=== PATIENT | female | born 1950 | race Caucasian/White ===

== ENCOUNTER → 2016-08-13 | Outpatient (CLI) | payer MEDICARE ==
[2016-08-13 16:12] LABS: Basophils % (A) 0 %; CH 28.5; CHCM 34.7; Eosinophils # (A) 0.1 k/uL (0-0.7); Eosinophils % (A) 1 %; HCT 35.3 % (34.0-46.0); HDW 2.52; HGB 12.5 gm/dL (11.4-16.0); Luc # (Auto) 0.14; Luc % (Auto) 2; Lymphocytes # (A) 1.6 k/uL (1.0-4.8); Lymphocytes % (A) 19 %; MCH 29.2 pg (25.0-35.0); MCHC 35.5 g/dL (31.0-37.0); MCV 82.2 fL (80.0-100.0); Mean Platelet Volume 5.9; Monocytes # (A) 0.4 k/uL (0-1.0); Monocytes % (A) 5 %; Neutrophils % (A) 73 %; RBC 4.29 m/uL (3.80-5.40); RDW 14.2 % (11.5-15.5); WBC 8.2 k/uL (3.8-10.6); WBC (Perox) 8.75
[2016-08-13 16:20] LABS: ALT 37 U/L (9-52); AST 23 U/L (14-36); Blood Urea Nitrogen 19 mg/dL (7-17); C Reactive Protein <5.0 mg/L (<10.0); Non-African American GFR(MDRD) >60 (>60 ml/min/1.73 sqM)
[2016-08-13 16:55] LABS: Erythrocyte Sedimentation Rate 3 mm/hr (0-20)
== END ==
LOC: LABWHC1 15:29
PROVIDERS: ATTEND Internal Medicine Rheumatology
DX: N18.9 Chronic kidney disease, unspecified (principal); E80.7 Disorder of bilirubin metabolism, unspecified; M81.0 Age-related osteoporosis without current pathological fracture; P74.4 Other transitory electrolyte disturbances of newborn; R82.99 Other abnormal findings in urine; R82.90 Unspecified abnormal findings in urine; Z79.1 Long term (current) use of non-steroidal anti-inflammatories (NSAID)
CPT/HCPCS: 36415; 82040; 82565; 84450; 84460; 84520; 85025; 85652; 86140

== ENCOUNTER → 2018-07-18 | Outpatient (CLI) | payer MEDICARE ==
--- NOTE | 2018-07-19 09:12 | MM ---
Reason for exam: screening (asymptomatic). Last mammogram was performed 3 years and 2 months ago. History: Patient is postmenopausal. Family history of breast cancer in maternal aunt. Excisional biopsy of the left breast. Took hormonal contraceptives for 4 years. Took estrogen for 2 years. Physical Findings: A clinical breast exam by your physician is recommended on an annual basis and results should be correlated with mammographic findings. MG 3D Screening Mammo W/Cad Bilateral CC and MLO view(s) were taken. Prior study comparison: May 20, 2015, bilateral MG 3d screening mammo w/cad. There are scattered fibroglandular densities. Benign appearing bilateral calcifications. There is chronic nodularity bilaterally, stable. Post operative change in the left breast is stable. ASSESSMENT: Benign, BI-RAD 2 RECOMMENDATION: Routine screening mammogram of both breasts in 1 year.
== END | disposition home or self-care (01) ==
LOC: RADMAMWWP 13:22
PROVIDERS: ATTEND Pediatrics
DX: Z12.31 Encounter for screening mammogram for malignant neoplasm of breast (principal)
CPT/HCPCS: 77063; 77067

== ENCOUNTER 2020-02-26 07:08 | Day surgery (SDC) | payer MEDICARE ==
[~2020-02-26 07:08] MED LIST: LACTATED RINGERS 1,000 ML IV SCH
[2020-02-26 07:31] VITALS: RESP 16; TEMP 97.4
[2020-02-26] MEDS ORDERED: LIDOCAINE 1% (10MG/ML) FOR IV START INTRADERMA ONE (07:36)
[2020-02-26] MEDS ORDERED: PROPOFOL 10 MG/ML 20 ML VIAL IV ONE (08:18)
[2020-02-26] MEDS ORDERED: LIDOCAINE 1% INJ 10MG/ML (20 ML MDV) ONE (08:18)
--- NOTE | 2020-02-26 08:36 | P.PCN ---
Date of Procedure: 02/26/20 Description of Procedure: BRIEF HISTORY: Patient is a 70-year-old female who presents for outpatient EGD for evaluations of esophageal ulcer, esophageal varices, GERD. The patient reports a long- standing history of reflux disease. She does take Prilosec therapy. She reports symptoms of epigastric pain without medications. PROCEDURE PERFORMED: Esophagogastroduodenoscopy with biopsy. PREOPERATIVE DIAGNOSIS: Esophageal ulcer/varices, GERD, epigastric abdominal pain. ESTIMATED BLOOD LOSS: Minimal. IV sedation per anesthesia. PROCEDURE: After informed consent was obtained, the patient was brought into the endoscopy unit. IV sedation was administered by Anesthesia under continuous monitoring. Initially the Olympus GIF-190 video endoscope was inserted into the mouth. Esophagus intubated without any difficulty. It was gradually advanced into the stomach and duodenum and carefully examined. The bulb and the second part of the duodenum appeared normal, with biopsies taken. The scope at this time was withdrawn to the stomach, adequately insufflated with air, and upon careful ex amination, mucosa of the antrum, body, cardia and the fundus appeared normal, except for some mild punctate erythema in the antrum and body suggestive of mild gastritis with biopsies taken. The scope was then withdrawn into the esophagus. The GE junction was located at 35 cm from the incisors with a 2 cm hiatal hernia noted. Biopsies were taken of the esophagus. The esophagus appeared normal. The re were no erosions or ulcerations seen and the patient tolerated the procedure well. IMPRESSION: 1. Mild gastritis. 2. Small hiatal hernia. 3. No ulcers, masses or varices of the esophagus. 4. Biopsies taken of the duodenum, antrum body and the lower esophagus RECOMMENDATIONS: The findings of this examination were discussed with the patient and family. Okay to resume diet. Okay to resume medications. Continue medical management of reflux. Await pathology from biopsies.
[2020-02-26 09:04] VITALS: BP 135/87; PULSE 87
== END 2020-02-26 09:15 | disposition home or self-care (01) ==
LOC: ORWHC2ENDO 07:08
PROVIDERS: ATTEND Internal Medicine
DX: K29.50 Unspecified chronic gastritis without bleeding (principal); K21.00 Gastro-esophageal reflux disease with esophagitis, without bleeding; K44.9 Diaphragmatic hernia without obstruction or gangrene; I10 Essential (primary) hypertension; E78.5 Hyperlipidemia, unspecified; E07.9 Disorder of thyroid, unspecified; M79.7 Fibromyalgia; F41.9 Anxiety disorder, unspecified; Z86.718 Personal history of other venous thrombosis and embolism; Z79.899 Other long term (current) drug therapy; Z79.890 Hormone replacement therapy; Z88.6 Allergy status to analgesic agent; Z88.1 Allergy status to other antibiotic agents; Z88.8 Allergy status to other drugs, medicaments and biological substances; Z98.890 Other specified postprocedural states; Z90.49 Acquired absence of other specified parts of digestive tract
CPT/HCPCS: 88305; 43239; J2001; J2704

== ENCOUNTER → 2020-09-07 | Outpatient (CLI) | payer MEDICARE ==
--- NOTE | 2020-09-08 05:20 | MR ---
EXAMINATION TYPE: MR iac wo/w con DATE OF EXAM: 09/07/2020 COMPARISON: HISTORY: Dizziness CONTRAST: Standard multiplanar, multisequence MRI departmental protocol utilizing 7.5 mL intravenous Gadavist g adolinium contrast. There is diffuse cerebral cortical atrophy. There is no mass effect nor midline shift. There is no ev idence of intracranial hemorrhage. Diffusion images show no evidence of an acute infarct. On the T2 a nd FLAIR images there is moderate patchy increased signal in the periventricular white matter and ext ending into the gonzales-white matter junction of both cerebral hemispheres. There are coalescent areas t hat measure up to 1 cm in thickness. Total number is more than 30. There is also some patchy mild inc reased signal within the central edna that measures 1.3 cm. Cerebellum is intact. There is no evidenc e of posterior fossa mass. The internal auditory canals appear normal. There is no evidence of cerebe llopontine angle mass. The acoustic nerve and vestibular nerves appear normal. Contrast images show n o pathologic enhancement in the posterior fossa. Optic chiasm appears normal. Pituitary stalk is in t he midline. Pituitary gland appears normal. There is thinning of the corpus callosum. IMPRESSION: Cerebral atrophy. Diffuse white matter signal changes that could relate to chronic small vessel ische rose and demyelinating disease. There is also involvement of the edna. No posterior fossa focal abnormality.
== END | disposition home or self-care (01) ==
LOC: RADMRIMAIN 14:28
PROVIDERS: ATTEND Otolaryngology
DX: G31.9 Degenerative disease of nervous system, unspecified (principal); R90.82 White matter disease, unspecified
CPT/HCPCS: 70553; A9585

== ENCOUNTER 2021-05-27 05:46 | Day surgery (SDC) | payer MEDICARE ==
[~2021-05-27 05:46] MED LIST changes: +ALPRAZolam 0.5 MG TAB PO PRN; +ASPIRIN 325 MG TAB PO STA; +ATORVASTATIN 80 MG TAB PO STA; -LACTATED RINGERS 1,000 ML IV SCH; +NITROGLYCERIN SL TABS 0.4 MG TAB SUBLINGUAL PRN
[2021-05-27] MEDS ORDERED: SODIUM CHLORIDE 0.9% 1,000 ML IV ONE (06:10)
[2021-05-27] MEDS: SODIUM CHLORIDE 0.9% 1,000 ML in EMPTY BAG 1 BAG IV SCH ×3 (06:39→22:12)
[2021-05-27] MEDS: ALPRAZolam 0.25 MG TAB PO PRN ×2 (06:39→20:50)
[2021-05-27] MEDS ORDERED: HEPARIN SODIUM,PORCINE 10,000 UNIT in SODIUM CHLORIDE 0.9% 1,000 ML IRRIGATION PRN (07:00)
[2021-05-27] MEDS ORDERED: HEPARIN SODIUM,PORCINE 2,500 UNIT in SODIUM CHLORIDE 0.9% 250 ML IRRIGATION PRN (07:00)
[2021-05-27] MEDS ORDERED: LIDOCAINE 1% INJ 10MG/ML (20 ML MDV) ONE (07:30)
[2021-05-27] MEDS ORDERED: VERAPAMIL 2.5 MG/ML 2 ML AMP ONE (07:30)
[2021-05-27] MEDS ORDERED: fentaNYL (PF) 50 MCG/ML 2 ML AMP ONE (07:36)
[2021-05-27] MEDS ORDERED: fentaNYL (PF) 50 MCG/ML 2 ML AMP IV ONE ×2 (07:39→07:46)
[2021-05-27] MEDS ORDERED: MIDAZOLAM 2 MG/2 ML VIAL IV ONE ×2 (07:43→07:45)
[2021-05-27] MEDS ORDERED: LIDOCAINE 1% INJ 10MG/ML (20 ML MDV) SQ ONE ×2 (07:44→07:49)
[2021-05-27] MEDS ORDERED: VERAPAMIL SYRINGE (5 MG/10 ML) INTRAARTER ONE (07:46)
[2021-05-27] MEDS ORDERED: HEPARIN SODIUM 1,000 UN/ML (10ML VL) ONE (07:47)
[2021-05-27] MEDS: HEPARIN SODIUM 1,000 UN/ML (10ML VL) IV ONE ×3 (07:53→08:37)
[2021-05-27] MEDS ORDERED: CLOPIDOGREL 75 MG TAB ONE (07:57)
[2021-05-27] MEDS ORDERED: CLOPIDOGREL 75 MG TAB PO ONE ×2 (07:57)
[2021-05-27] MEDS ORDERED: NITROGLYCERIN 1000MCG/10ML SYRINGE INTRACORON ONE (08:12)
[2021-05-27] MEDS ORDERED: IOPAMIDOL-370 125ML BTL INJ ONE ×2 (08:16)
[2021-05-27] MEDS ORDERED: IOPAMIDOL-370 100ML BTL INJ ONE ×2 (08:32→08:34)
[2021-05-27] MEDS ORDERED: ZOLPIDEM 5 MG TAB PO PRN (08:46)
[2021-05-27] MEDS ORDERED: MAG HYDROX/AL HYDROX/SIMETH 30 ML CUP PO PRN (08:46)
[2021-05-27] MEDS ORDERED: RX INFO: IV CONTRAST WAS GIVEN 1 EACH MISC MISCELLANE PRN (08:46)
[2021-05-27] MEDS ORDERED: NITROGLYCERIN SL TABS 0.4 MG TAB SUBLINGUAL PRN (08:46)
[2021-05-27] MEDS ORDERED: ATROPINE SULFATE 0.1 MG/ML 10ML SYRINGE IV PRN (08:46)
[2021-05-27] MEDS ORDERED: SODIUM CHLORIDE 0.9% 1,000 ML in EMPTY BAG 1 BAG IV SCH (09:00)
[2021-05-27 13:55] VITALS: BMI 33.5
--- NOTE | 2021-05-27 18:09 | P.CARDCATH ---
Date of Procedure: 05/27/21 Description of Procedure: Cardiac Catheterization: The patient is a 71-year-old female with a history of hypertension and hyperlipidemia who has been complaining of progressive dyspnea, she underwent an MPI that showed a possible anterior wall ischemia. In view of that recommendations were made regarding cardiac catheterization, the risks and the complications were discussed with the patient who is in full understanding and agreement. Procedure Description: Patient was brought to label folder in fasting semi-sedated state after receiving Fentanyl and Benadryl achieiving moderate conscious sedated state. Using Xylocaine Anesthesia and Seldinger technique, a 6-Gambian sheath was introduced in the right radial artery . Subsequently, selective coronary angiography performed using a 5-Gambian 3-1/2 bend Deirdre catheter. Multiple views of the coronary artery including hemiaxial views were obtained. The right Deirdre catheter was used to cross the aortic valve and LVDP was calculated. Following that, catheter and sheath were removed. Hemostasis was obtained with deployment of TR band . There was no immediate complication. Patient was returned to room in stable condition. Of note, the patient received a total of 7000 units of intravenous heparin as well as intra- arterial verapamil. There was no immediate complications. Findings: Fluoroscopy there was calcification involving the LAD Left main: This is a short sized vessel, bifurcating into LAD and left circumflex, left main is no high-grade stenosis LAD: This is a large-size vessel, reaching to the apex, at the takeoff of the first septal vest finisher there is an eccentric 90% stenosis tubular. The rest of the vessel has no high-grade stenosis Left circumflex: This is a dominant vessel, large in caliber, giving rise to 2 obtuse marginal branch, the second obtuse marginal branch has a 90% eccentric lesion proximally. RCA: This is a dominant vessel, bifurcating distally to PDA and PLV, the RCA has no evidence of high-grade stenosis [Left] Ventriculogram: Was not performed Hemodynamics: There was no gradient across the aortic valve, LVDP 15-18 mmHg Conclusion: 1. Calcified LAD 2. Critical stenosis in the proximal LAD 3. Critical stenosis in the second obtuse marginal branch 4. Dominant right Recommendations: In view of the findings and the anatomy I have recommended to proceed with angioplasty and stenting of the LAD and the circumflex, the procedure as well as the risks and the complications were discussed with the patient who is in agreement and understanding.
--- NOTE | 2021-05-27 18:17 | P.CARDCATH ---
Date of Procedure: 05/27/21 Description of Procedure: PERCUTANEOUS TRANSLUMINAL CORONARY ANGIOPLASTY CLINICAL INFORMATION: The patient is a 71-year-old female who presented with symptoms of dyspnea and had an abnormal MPI, her cardiac catheterization revealed significant stenosis in the LAD and left circumflex recommendations were made regarding angioplasty and stenting, the procedure as well as the risk and the complication were discussed with the patient and she was in full understanding and agreement. PROCEDURE: A 6 Monegasque 3.5 left Deirdre guiding catheter was introduced into the system. After cannulating the left main, a 0.014 balanced medium J-wire was advanced across the lesion and positioned distally. Attempts to advance a 2.5 x 15 mm NC Treck were unsuccessful. Following that the balloon, the wire and the guiding catheter were removed and a 6-Monegasque 3.75 EBU guiding catheter. After cannulating the left main the 0.014 balanced medium J-wire was introduced in the distal LAD and a 2.5 x 15 mm balloon was advanced and when inflation at 12 grecia was done. Following that a 3.25 x 28 Xience crispin point stent was deployed. It was dilated at 16 grecia. 3.5 x 15 mm NC Treck balloon was advanced and when inflation at 12 grecia was done. Following that the wire was advanced the second obtuse marginal branch and the 2.5 x 15 mm balloon was advanced and when inflation was done at 12 grecia. Following that a 3.25 x 15 mm Xience crispin point stent was advanced deployed and postdilated at 16 grecia. After the last inflatio n, after appropriate wait, the balloon and the guidewire were withdrawn back into the guiding catheter. Images were obtained and repeated. Those images reveal stable successful stenting. At that point, the guiding catheter, the balloon, and guidewire were removed. The sheath was removed. Hemostasis was obtained with deployment of a TR band. There were no immediate complications. The patient was returned to the room in stable condition. Of note, the patient received 7000 units of heparin as well as Plavix. Patient had EKG changes but no significant chest discomfort RESULTS: 1. Successful stenting of the proximal LAD with reduction of stenosis from 90% to 0% 2. Successful stenting of the second OM with reduction of the stenosis from 90% to 0 %. RECOMMENDATIONS: The findings were discussed with the patient and her family. She will continue dual antiplatelets treatment for at least 6 months. Aggressive coronary risk modification will be continued. She and her family are in full understanding and agreement. Urination of sedation 55 minutes.
[2021-05-27] MEDS: FAMOTIDINE 20 MG TAB PO SCH (20:44)
[2021-05-27] MEDS ORDERED: GABAPENTIN 300 MG CAP PO SCH (21:00)
[2021-05-28] MEDS: ALPRAZolam 0.25 MG TAB PO PRN (05:45)
[2021-05-28] MEDS ORDERED: LEVOTHYROXINE 100 MCG TAB PO SCH (06:30)
--- NOTE | 2021-05-28 07:13 | P.PN ---
Subjective Progress Note Date: 05/28/21 PROGRESS NOTE The patient is a 71-year-old female with a history of hypertension hyperlipidemia who presented with progressive dyspnea and abnormal MPI, underwent cardiac catheterization and was found to have severe obstructive disease involving the LAD and left circumflex, underwent stenting of both vess els. She is doing well this morning, ambulating without difficulty. She denies any symptoms of chest discomfort. She continues to be on aspirin once a day, Plavix 75 mg daily, Lipitor 40 mg daily, gabapentin, losartan 50 mg daily, ropinirole PHYSICAL EXAMINATION: Blood pressure 134/70 heart rate 90 LUNGS: [Clear to auscultation] HEART: [Regular rate and rhythm, S1, S2. No S3, systolic murmur ejection type] ABDOMEN: [Soft, nontender, no organomegaly] EXTREMETIES: [No edema . Right radial pulse intact. LAB: EKG shows sinus mechanism with no acute ST segment changes. IMPRESSION: 1. Status post stenting of LAD and left circumflex 2. Hypertension 3. Hyperlipidemia PLAN: the patient will be discharged home today, followed as an outpatient and depending on her progress further recommendations will be made. Objective - Vital Signs Vital signs: Vital Signs Temp 98.5 F 05/28/21 00:30 Pulse 92 05/28/21 00:30 Resp 18 05/28/21 00:30 BP 150/82 05/28/21 00:30 Pulse Ox 96 05/28/21 00:30 Intake & Output 05/27/21 05/28/21 05/28/21 18:59 06:59 18:59 Intake Total 640 Balance 640 Weight 88.5 kg Intake: IV 550 Oral 90 Other: Voiding Method Toilet # Voids 1 2
[2021-05-28] MEDS: FAMOTIDINE 20 MG TAB PO SCH (07:49)
[2021-05-28 08:06] VITALS: BP 150/79; PULSE 88; RESP 17; TEMP 98.3
[2021-05-28 08:19] LABS: Basophils % (A) 1 %; Eosinophils # (A) 0.3 k/uL (0-0.7); Eosinophils % (A) 6 %; HCT 38.4 % (34.0-46.0); HGB 12.8 gm/dL (11.4-16.0); Lymphocytes # (A) 1.2 k/uL (1.0-4.8); Lymphocytes % (A) 22 %; MCH 28.8 pg (25.0-35.0); MCHC 33.4 g/dL (31.0-37.0); MCV 86.2 fL (80.0-100.0); Mean Platelet Volume 6.7; Monocytes # (A) 0.4 k/uL (0-1.0); Monocytes % (A) 7 %; Neutrophils # (A) 3.4 k/uL (1.3-7.7); Neutrophils % (A) 62 %; Platelet Count 254 k/uL (150-450); RBC 4.46 m/uL (3.80-5.40); RDW 12.7 % (11.5-15.5); WBC 5.5 k/uL (3.8-10.6)
[2021-05-28 08:24] LABS: African American GFR (CKD) >90 (>60 ml/min/1.73 sqM); Anion Gap 3 mmol/L; Blood Urea Nitrogen 13 mg/dL (7-17); Calcium 8.9 mg/dL (8.4-10.2); Carbon Dioxide 30 mmol/L (22-30); Chloride 99 mmol/L (98-107); Glucose 99 mg/dL (74-99); Non-African American GFR(CKD) 88 (>60 ml/min/1.73 sqM); Potassium 5.1 mmol/L (3.5-5.1); Sodium 132 mmol/L (137-145)
[2021-05-28] MEDS ORDERED: DULoxetine HCL 60 MG CAPSULE.DR PO SCH (09:00)
[2021-05-28] MEDS ORDERED: ATORVASTATIN 40 MG TAB PO SCH (09:00)
[2021-05-28] MEDS ORDERED: FOLIC ACID 1 MG TAB PO SCH (09:00)
[2021-05-28] MEDS ORDERED: CLOPIDOGREL 75 MG TAB PO SCH (09:00)
[2021-05-28] MEDS ORDERED: LOSARTAN 50 MG TAB PO SCH (09:00)
[2021-05-28] MEDS ORDERED: ASPIRIN 81 MG PO SCH (09:00)
== END 2021-05-28 10:36 | disposition home or self-care (01) ==
LOC: CATHCVL 05:46 → 6NMEDSUR 08:35 → CATHCVL 05-28 10:36
PROVIDERS: ATTEND Internal Medicine Interventional Cardiology
DX: I25.10 Atherosclerotic heart disease of native coronary artery without angina pectoris (principal); I10 Essential (primary) hypertension; E78.5 Hyperlipidemia, unspecified; Z20.822 Contact with and (suspected) exposure to COVID-19
CPT/HCPCS: 92928; 87635; J2250; J2001; J3010; J1644; Q9967 ×2; 80048; 85025; 93458

== ENCOUNTER 2021-09-14 12:37 | Emergency (ER) | payer MEDICARE ==
[2021-09-14 13:37] VITALS: RESP 18
[2021-09-14] MEDS ORDERED: SODIUM CHLORIDE 0.9% 1,000 ML IV STA (15:16)
[2021-09-14] MEDS ORDERED: KETOROLAC 15 MG/ML 1 ML VIAL IVP STA (15:16)
--- NOTE | 2021-09-14 15:20 | ED ---
General Adult HPI - General Chief complaint: Abdominal Pain Stated complaint: High BP Time Seen by Provider: 09/14/21 14:59 Source: patient Mode of arrival: ambulatory Limitations: no limitations - History of Present Illness Initial comments: Dictation was produced using b5media dictation software. please excuse any grammatical, word or spelling errors. Chief Complaint: 71-year-old female presents to the emergency department for elevated blood pressure History of Present Illness: 89-year-old female she presents to emergency depart ment for hypertension. She noticed her hypertension recently within the last couple days. She was at cardiac rehab when she noticed that her blood pressure began creeping up. She has a digital wrist blood pressure monitor that she's been taking her blood pressure frequently. States that her levels have been significantly elevated over the last couple days. Patient takes losartan 50 mg daily prescribed by electronic warfare technical. Yesterday she tried taking an extra losartan which improved her blood pressure. Today she noticed that her blood pressures were elevated again and decided to come to the emergency room. She has a mild headache that is not the worse headache of her life or thunderclap in nature. She denies any chest pain or shortness of breath. He has any recent salt intake. No alcohol or drugs. The ROS documented in this emergency department record has been reviewed and confirmed by me. Those systems with pertinent positive or negative responses have been documented in the HPI. All other systems are other negative and/or noncontributory. PHYSICAL EXAM: General Impression: Alert and oriented x3, not in acute distress HEENT: Normocephalic atraumatic, extra-ocular movements intact, pupils equal and reactive to light bilaterally, mucous membranes moist. Cardiovascular: Heart regular rate and rhythm Chest: Able to complete full sentences, no retractions, no tachypnea Abdomen: abdomen soft, non-tender, non-distended, no organomegaly Musculoskeletal: Pulses present and equal in all extremities, no peripheral edema Motor: no focal deficits noted Neurological: CN II-XII grossly intact, no focal motor or sensory deficits noted Skin: Intact with no visualized rashes Psych: Normal affect and mood ED course: 71-year-old female presents to the emergency department for hypertension. All signs upon arrival are within acceptable limits. Blood pressure in triage is 189/91. Patient states that her at home blood pressures have been measured as high as 200/100. Patient not having any symptoms or signs of hypertensive emergency.Patient's blood pressures improved after 1 dose of labetalol. Patient does not have any high-risk features. Patient be discharged. She states she does have a follow-up appointment with her electronic warfare technical is near future. Patient will likely benefit from dose medications changes to manage her outpatient blood pressure. - Related Data Home Medications Medication Instructions Recorded Confirmed ALPRAZolam [Xanax] 0.25 mg PO BID PRN 05/30/15 05/27/21 Aspirin 81 mg PO DAILY 05/30/15 05/27/21 Biotin 10,000 mcg PO HS 05/30/15 05/27/21 Calcium Carbonate/Vitamin D3 1 each PO BID 05/30/15 05/27/21 [Calcium 600 + Vit D Tablet] DULoxetine HCL [Cymbalta] 60 mg PO DAILY 05/30/15 05/27/21 Fesoterodine Fumarate [Toviaz] 4 mg PO BID 05/30/15 05/27/21 Folic Acid 400 mcg PO DAILY 05/30/15 05/27/21 Magnesium 500 mg PO BID 05/30/15 05/27/21 Omeprazole [PriLOSEC] 40 mg PO QAM 05/30/15 05/27/21 Vitamin E (Dl,Tocopheryl Acet) 1,000 unit PO QAM 05/30/15 05/27/21 [Vitamin E] Zinc Gluconate [Zinc] 100 mg PO DAILY 05/30/15 05/26/21 Cimetidine [Tagamet] 800 mg PO BID 02/22/20 05/27/21 Ferrous Sulfate [Iron (65 MG 325 mg PO Q48H 02/22/20 05/27/21 Elemental)] HYDROcodone/IBUPROFEN 7.5-200 1 tab PO BID PRN 02/22/20 05/27/21 [Vicoprofen 7.5-200 mg] Hydrochlorothiazide 12.5 mg PO DAILY 02/22/20 05/27/21 [hydroCHLOROthiazide] Levothyroxine Sodium [Synthroid] 100 mcg PO DAILY 02/22/20 05/27/21 Losartan [Cozaar] 50 mg PO QAM 02/22/20 05/27/21 Meloxicam [Mobic] 15 mg PO DAILY 02/22/20 05/27/21 [place] Complete 1 tab PO DAILY 02/22/20 05/27/21 Vitamin B Complex 1 each PO DAILY 02/22/20 05/27/21 Gabapentin 300 mg PO HS 05/26/21 05/27/21 rOPINIRole HCL [Requip] 1.5 mg PO QAM 05/26/21 05/27/21 rOPINIRole HCL [Requip] 2 mg PO HS 05/26/21 05/27/21 Previous Rx's Medication Instructions Recorded Atorvastatin [Lipitor] 40 mg PO DAILY #90 tab 05/28/21 Clopidogrel [Plavix] 75 mg PO DAILY #90 tab 05/28/21 Nitroglycerin Sl Tabs [Nitrostat] 0.4 mg SUBLINGUAL Q5M PRN #25 tab 05/28/21 Allergies Allergy/AdvReac Type Severity Reaction Status Date / Time nickel Allergy Rash/Hives Verified 09/14/21 13:37 acetaminophen [From Tylenol] AdvReac "avoids Verified 09/14/21 13:37 because causes excessive urination" erythromycin base AdvReac stomach Verified 09/14/21 13:37 cramps Review of Systems ROS Statement: Those systems with pertinent positive or pertinent negative responses have been documented in the HPI. ROS Other: All systems not noted in ROS Statement are negative. Past Medical History Past Medical History: Deep Vein Thrombosis (DVT), Fibromyalgia, GERD/Reflux, Hypertension, Osteoarthritis (OA), Thyroid Disorder Additional Past Medical History / Comment(s): hx: peptic ulcers, states possible sleep apnea but has not been tested History of Any Multi-Drug Resistant Organisms: None Reported Past Surgical History: Breast Surgery, Cholecystectomy, Hysterectomy, Joint Replacement, Orthopedic Surgery, Tonsillectomy, Tubal Ligation Additional Past Surgical History / Comment(s): sx: joint replacements: left hi p, gurinder. shoulder, right knee. multiple foot/toe surgeries, finger surgery right index, bilateral thumb surg. carpal tunnel repair. bilateral cataracts removed. sinus surg. Past Anesthesia/Blood Transfusion Reactions: No Reported Reaction Additional Past Anesthesia/Blood Transfusion Reaction / Comment(s): no blood transfusions Past Psychological History: Anxiety Smoking Status: Former smoker Past Alcohol Use History: Occasional Past Drug Use History: None Reported - Past Family History Mother Family Medical History: Cancer, Hyperlipidemia Additional Family Medical History / Comment(s): CA: ovarian, lymph, breast, bones Father Family Medical History: Cancer, Coronary Artery Disease (CAD), Myocardial Infarction (MA), Rheumatoid Arthritis (RA) Additional Family Medical History / Comment(s): sx: choley General Exam Limitations: no limitations Course Vital Signs 09/14/21 09/14/21 09/14/21 13:30 15:31 17:00 Temperature 97.7 F Pulse Rate 94 85 81 Respiratory 18 18 18 Rate Blood Pressure 189/91 201/109 179/97 O2 Sat by Pulse 99 99 98 Oximetry Medical Decision Making - Lab Data Result diagrams: 09/14/21 15:20 09/14/21 15:20 Lab Results 09/14/21 09/14/21 Range/Units 15:20 15:20 WBC 11.4 H (3.8-10.6) k/uL RBC 4.83 (3.80-5.40) m/uL Hgb 12.8 (11.4-16.0) gm/dL Hct 41.3 (34.0-46.0) % MCV 85.5 (80.0-100.0) fL MCH 26.5 (25.0-35.0) pg MCHC 31.0 (31.0-37.0) g/dL RDW 13.8 (11.5-15.5) % Plt Count 403 (150-450) k/uL MPV 6.6 Neutrophils % 80 % Lymphocytes % 11 % Monocytes % 7 % Eosinophils % 1 % Basophils % 0 % Neutrophils # 9.1 H (1.3-7.7) k/uL Lymphocytes # 1.2 (1.0-4.8) k/uL Monocytes # 0.8 (0-1.0) k/uL Eosinophils # 0.1 (0-0.7) k/uL Basophils # 0.0 (0-0.2) k/uL Sodium 137 (137-145) mmol/L Potassium 3.2 L (3.5-5.1) mmol/L Chloride 97 L (98-107) mmol/L Carbon Dioxide 31 H (22-30) mmol/L Anion Gap 9 mmol/L BUN 17 (7-17) mg/dL Creatinine 0.46 L (0.52-1.04) mg/dL Est GFR (CKD-EPI)AfAm >90 (>60 ml/min/1.73 sqM) Est GFR (CKD-EPI)NonAf >90 (>60 ml/min/1.73 sqM) Glucose 87 (74-99) mg/dL Calcium 8.7 (8.4-10.2) mg/dL Total Bilirubin 0.5 (0.2-1.3) mg/dL AST 36 (14-36) U/L ALT 36 H (4-34) U/L Alkaline Phosphatase 126 (38-126) U/L Total Protein 7.2 (6.3-8.2) g/dL Albumin 4.5 (3.5-5.0) g/dL Disposition Clinical Impression: Hypertension Disposition: HOME SELF-CARE Condition: Fair Instructions (If sedation given, give patient instructions): Hypertension (ED) Is patient prescribed a controlled substance at d/c from ED?: No Referrals: Masood Arizmendi MD [Primary Care Provider] - 1-2 days Chelsi Ivey MD [STAFF PHYSICIAN] - 1-2 days
[2021-09-14 15:26] LABS: Basophils % (A) 0 %; Eosinophils # (A) 0.1 k/uL (0-0.7); Eosinophils % (A) 1 %; HCT 41.3 % (34.0-46.0); HGB 12.8 gm/dL (11.4-16.0); Lymphocytes # (A) 1.2 k/uL (1.0-4.8); Lymphocytes % (A) 11 %; MCH 26.5 pg (25.0-35.0); MCV 85.5 fL (80.0-100.0); Mean Platelet Volume 6.6; Monocytes # (A) 0.8 k/uL (0-1.0); Monocytes % (A) 7 %; Neutrophils # (A) 9.1 k/uL (1.3-7.7); Neutrophils % (A) 80 %; Platelet Count 403 k/uL (150-450); RBC 4.83 m/uL (3.80-5.40); RDW 13.8 % (11.5-15.5); WBC 11.4 k/uL (3.8-10.6)
[2021-09-14 15:35] LABS: ALT 36 U/L (4-34); AST 36 U/L (14-36); African American GFR (CKD) >90 (>60 ml/min/1.73 sqM); Albumin 4.5 g/dL (3.5-5.0); Alkaline Phosphatase 126 U/L (38-126); Anion Gap 9 mmol/L; Blood Urea Nitrogen 17 mg/dL (7-17); Calcium 8.7 mg/dL (8.4-10.2); Carbon Dioxide 31 mmol/L (22-30); Chloride 97 mmol/L (98-107); Glucose 87 mg/dL (74-99); Non-African American GFR(CKD) >90 (>60 ml/min/1.73 sqM); Potassium 3.2 mmol/L (3.5-5.1); Sodium 137 mmol/L (137-145); Total Bilirubin 0.5 mg/dL (0.2-1.3); Total Protein 7.2 g/dL (6.3-8.2)
[2021-09-14] MEDS ORDERED: LABETALOL 5 MG/ML VIAL MDV IVP STA (15:45)
[2021-09-14] MEDS ORDERED: ONDANSETRON 4 MG/2 ML VIAL IVP STA (17:15)
[2021-09-14] MEDS ORDERED: diphenhydrAMINE 50 MG/ML 1 ML VIAL IVP STA (17:15)
[2021-09-14 17:28] VITALS: BP 171/85; PULSE 79; TEMP 98
== END 2021-09-14 17:48 | disposition home or self-care (01) ==
LOC: EC 12:37
DX: I10 Essential (primary) hypertension (principal); K21.9 Gastro-esophageal reflux disease without esophagitis; F41.9 Anxiety disorder, unspecified; M19.90 Unspecified osteoarthritis, unspecified site; M79.7 Fibromyalgia; E07.9 Disorder of thyroid, unspecified; Z79.02 Long term (current) use of antithrombotics/antiplatelets; Z79.82 Long term (current) use of aspirin; Z79.890 Hormone replacement therapy; Z79.899 Other long term (current) drug therapy; Z87.891 Personal history of nicotine dependence; Z86.718 Personal history of other venous thrombosis and embolism; Z88.1 Allergy status to other antibiotic agents; Z88.6 Allergy status to analgesic agent
CPT/HCPCS: 36415; 80053; 85025; 99284; 96374; 96375 ×3; 96361; J1200; J2405; J1885

== ENCOUNTER → 2022-07-09 | Outpatient (CLI) | payer MEDICARE ==
--- NOTE | 2022-07-09 12:42 | CT ---
EXAMINATION TYPE: CT sinus wo con CT DLP: 440.7 mGycm, Automated exposure control for dose reduction was used. DATE OF EXAM: 07/09/2022 12:28 PM COMPARISON: CT facial bones 01/09/2013. CLINICAL INDICATION:Female, 72 years old with history of J32.9 SINUS; PHH, sinus congestion CONTRAST: None. TECHNIQUE: Multiple thin axial images were obtained through the paranasal sinuses without the use of IV contrast. Additional coronal and sagittal reformatted images were submitted for evaluation. FINDINGS: Frontal sinuses: Normally developed and aerated. Frontal Recess: Clear Maxillary Sinuses: Normally developed . Postsurgical changes from bilateral antrostomy. Minimal mucos al thickening of the right maxillary sinus. Synechiae redemonstrated within the inferior left maxilla ry sinus. Ethmoid sinuses: Normally developed. Postsurgical changes of partial ethmoidectomy on the right. Mini mal mucosal thickening of the right sphenoid sinus. Ethmoidal notch: Protected and abutting the later al lamina. Sphenoid sinuses: Normally developed and aerated. There is sellar sphenoid sinus pneumatization witho ut evidence of dehiscence. No dehiscence of carotid canal. No evidence of optic nerve dehiscence wit hin the sphenoid sinus. Sphenoethmoidal recesses: Clear. Nasal septum: Within normal limits.. Nasal Turbinates: Within normal limits. Minimal debris demonstrated within the right nasal cavity. Mastoid air cells & middle ears: The air cells are clear. The middle ears are grossly unremarkable. Modified Soft tissues & Brain: Partially seen without gross abnormality. Globes are intact. Other: Cribriform plate demonstrates symmetric Keros classification type 2 cribriform plate. No evidence of bony dehiscence of skull base. Lamina papyracea is intact without evidence of remote orbital fracture or orbital prolapse into the e thmoid sinus. Bilateral aphakia. IMPRESSION: Similar postsurgical changes with minimal mucosal thickening of the right maxillary and right sphenoi d sinuses.
== END | disposition home or self-care (01) ==
LOC: RADCTMAIN 12:08
PROVIDERS: ATTEND Otolaryngology
DX: J32.9 Chronic sinusitis, unspecified (principal); J34.89 Other specified disorders of nose and nasal sinuses; Z98.890 Other specified postprocedural states
CPT/HCPCS: 70486

== ENCOUNTER → 2022-07-16 | Outpatient (CLI) | payer MEDICARE ==
--- NOTE | 2022-07-16 15:52 | XR ---
EXAMINATION TYPE: XR elbow complete LT DATE OF EXAM: 07/16/2022 COMPARISON: NONE HISTORY: Pain FINDINGS: Three views of the elbow obtained. Could not exclude a small anterior joint effusion. Joint effusion. The osseous structures are intact. There is no acute fracture or dislocation. Small spur involvin g the proximal ulna. IMPRESSION: 1. No acute osseous abnormality. Could not exclude a small anterior joint effusion. This is nonspecif ic could be seen with postinflammatory or infectious etiology. Correlate with history of trauma to ex clude occult fracture.
== END | disposition home or self-care (01) ==
LOC: RADXRMAIN 14:49
PROVIDERS: ATTEND Pediatrics
DX: M25.522 Pain in left elbow (principal)

== ENCOUNTER → 2022-10-07 | Day surgery (SDC) | payer MEDICARE ==
[~2022-10-07] MED LIST changes: +ALPRAZolam 0.25 MG TAB PO PRN; +ASPIRIN 81 MG PO SCH; +ATORVASTATIN 40 MG TAB PO SCH; +HEPARIN SODIUM 1,000 UN/ML (10ML VL) IV ONE; +HEPARIN SODIUM,PORCINE 10,000 UNIT in SODIUM CHLORIDE 0.9% 1,000 ML IRRIGATION PRN; +HEPARIN SODIUM,PORCINE 2,500 UNIT in SODIUM CHLORIDE 0.9% 250 ML IRRIGATION PRN; +IOPAMIDOL-370 100ML BTL INJ ONE; +IV FLUID CONTINUATION 1,000 ML IV ONE; +LIDOCAINE 1% INJ 10MG/ML (5 ML VIAL-PF) SQ ONE; +LOSARTAN 50 MG TAB PO SCH; +MIDAZOLAM 2 MG/2 ML VIAL IV ONE; +RX INFO: IV CONTRAST WAS GIVEN 1 EACH MISC MISCELLANE PRN; +SODIUM CHLORIDE 0.9% 1,000 ML in EMPTY BAG 1 BAG IV SCH; +VERAPAMIL 2.5 MG/ML 2 ML AMP ONE; +VERAPAMIL SYRINGE (5 MG/10 ML) INTRAARTER ONE; +carvediloL 12.5 MG TAB PO SCH; +fentaNYL (PF) 50 MCG/1 ML VIAL IV ONE; +fentaNYL (PF) 50 MCG/ML 2 ML AMP ONE
[2022-10-07 10:55] VITALS: TEMP 98.1
[2022-10-07 12:33] LABS: Basophils % (A) 0 %; Eosinophils # (A) 0.2 k/uL (0-0.7); Eosinophils % (A) 3 %; HCT 33.7 % (34.0-46.0); HGB 11.2 gm/dL (11.4-16.0); Lymphocytes # (A) 1.4 k/uL (1.0-4.8); Lymphocytes % (A) 20 %; MCH 25.8 pg (25.0-35.0); MCHC 33.3 g/dL (31.0-37.0); MCV 77.3 fL (80.0-100.0); Mean Platelet Volume 6.6; Monocytes # (A) 0.4 k/uL (0-1.0); Monocytes % (A) 6 %; Neutrophils # (A) 4.7 k/uL (1.3-7.7); Neutrophils % (A) 68 %; Platelet Count 292 k/uL (150-450); RBC 4.36 m/uL (3.80-5.40); RDW 14.2 % (11.5-15.5); WBC 6.9 k/uL (3.8-10.6)
[2022-10-07 12:56] LABS: African American GFR (CKD) >90 (>60 ml/min/1.73 sqM); Anion Gap 3 mmol/L; Blood Urea Nitrogen 11 mg/dL (7-17); Carbon Dioxide 31 mmol/L (22-30); Chloride 92 mmol/L (98-107); Glucose 90 mg/dL (74-99); Non-African American GFR(CKD) >90 (>60 ml/min/1.73 sqM); Potassium 3.7 mmol/L (3.5-5.1); Sodium 126 mmol/L (137-145)
--- NOTE | 2022-10-07 12:56 | P.CARDCATH ---
Date of Procedure: 10/07/22 Description of Procedure: Cardiac Catheterization: The patient is a 72-year-old female with a known history of hypertension and hyperlipidemia, post-PCI who presented with worsening dyspnea and had an abnormal MPI. Recommendations were made regarding cardiac catheterization, the risks and the complications were discussed with the patient who is in full understanding and agreement. Procedure Description: Patient was brought to propagator laborer in fasting semi-sedated state after receiving Fentanyl and Benadryl achieiving moderate conscious sedated state. Using Xylocaine Anesthesia and Seldinger technique, a 6-Swazi sheath was introduced in the right radial artery . Subsequently, selective coronary angiography was performed using a 5-Swazi 3.5 bend Deirdre catheter. Multiple views of the coronary artery including hemiaxial views were obtained. The 5-Swazi pigtail catheter was used to cross the aortic valve and LVEDP was calculated. Following that, catheter and sheath were removed. Hemostasis was obtained with deployment of TR band . There was no immediate complication. Patient was returned to room in stable condition. Of note, the patient received a total of 5000 units of intravenous heparin as well as intra-arterial verapamil. Findings: Left main: This is a large size vessel, bifurcating into LAD and left circumflex, left main has no obstructive disease LAD: This is a large size vessel, reaching to the apex, giving rise to one diagonal branch of small to moderate caliber. The stented segment in the LAD is patent. There is mild intimal disease distal to the stent of 20%. The diagonal branch has a 70% stenosis at the takeoff but has a good flow. Left circumflex: This is a large nondominant vessel having rise to a large obtuse marginal branch. The proximal left circumflex has 20% plaque, the stented segment is patent with no evidence of in-stent restenosis. RCA: This is a large dominant vessel bifurcating into PDA and PLV, the right coronary artery has no evidence of high-grade stenosis Left Ventriculogram: Not performed Hemodynamics: There was no gradient across the aortic valve , LVEDP was 20-24 mmHg Conclusion: 1. Patent stent in the LAD and left circumflex 2. Mild intimal disease in the LAD and left circumflex 3. Right dominance 4. Mildly elevated LVEDP Recommendations: The patient will continue on present therapy with aggressive coronary risks modifications. I see no contraindication to her upcoming surgical intervention. The findings and the recommendations were discussed with the patient and the family and they were in full understanding and agreement. Duration of sedation is 22 minutes.
[2022-10-07 13:53] VITALS: RESP 16
[2022-10-07 14:39] VITALS: PULSE 77
[2022-10-07 15:35] VITALS: BP 137/63
== END | disposition home or self-care (01) ==
LOC: CATHCVL 09:57
PROVIDERS: ATTEND Internal Medicine Interventional Cardiology
DX: I25.10 Atherosclerotic heart disease of native coronary artery without angina pectoris (principal); I10 Essential (primary) hypertension; E78.2 Mixed hyperlipidemia; F17.210 Nicotine dependence, cigarettes, uncomplicated; Z79.82 Long term (current) use of aspirin; Z79.899 Other long term (current) drug therapy; Z90.89 Acquired absence of other organs; Z82.49 Family history of ischemic heart disease and other diseases of the circulatory system
CPT/HCPCS: 93458; 80048; 85025; C1769 ×3; C1894; J2250; J2001; J1644; Q9967; J3010

== ENCOUNTER → 2023-04-26 | Outpatient (CLI) | payer MEDICARE ==
--- NOTE | 2023-04-26 21:28 | MR ---
EXAMINATION TYPE: MR MRCP DATE OF EXAM: 04/26/2023 7:27 AM CLINICAL INDICATION:Female, 73 years old with history of K83.8 dilated bile duct; PHH, abd Pain, HBP, Hx of gallbladder removal COMPARISON: None TECHNIQUE: Multi planar, T2-weighted imaging with and without fat saturation and chemical shift imag ing was performed of the abdomen. Then, heavily T2 weighted imaging (half-Fourier acquisition single- shot turbo spin-echo) was utilized in order to study the biliary system. Maximum intensity projectio n images were reconstructed from the original data of the biliary tree. 3D images were created on [employer] work station. No Gadolinium given. FINDINGS: Lower Thorax: No evidence for acute process. MRCP: * The intrahepatic ducts are mildly dilated centrally. * The common bile duct at the level of the pancreatic head measures 12 mm in size. * The common hepatic duct measures 14 mm in size. * The pancreatic duct is normal. * The the gallbladder is surgically absent. There is a tiny cystic duct remnant. Abdomen: Liver: Unremarkable. Pancreas: Unremarkable. Spleen: Unremarkable. Adrenal glands: Unremarkable. Kidneys: No hydronephrosis. No solid evidence for solid neoplasm. No cystic lesions. Stomach and Bowel: There is a moderate amount of stool and gas present. The cecum is medially located in superior compared to its normal position. Peritoneum: No evidence of pneumoperitoneum or free fluid. Vasculature: Unremarkable. No aortic aneurysm. Musculoskeletal: The osseous structures appear intact. Lymph Nodes: No gross evidence for lymphadenopathy. Abdominal wall: Unremarkable. IMPRESSION: 1. No evidence for acute process. 2. Postcholecystectomy with the dilation of the extrahepatic and central intrahepatic biliary system . No evidence to suggest ductal stricture, choledocholithiasis, or biliary ductal dilatation.
== END | disposition home or self-care (01) ==
LOC: RADMRIMAIN 06:20
PROVIDERS: ATTEND Pediatrics
DX: K83.8 Other specified diseases of biliary tract (principal); Z90.49 Acquired absence of other specified parts of digestive tract
CPT/HCPCS: 74181

== ENCOUNTER → 2023-06-09 | Outpatient (CLI) | payer MEDICARE ==
--- NOTE | 2023-06-09 21:36 | MR ---
EXAMINATION TYPE: MR cervical spine wo con DATE OF EXAM: 06/09/2023 COMPARISON: None HISTORY: 73 year-old female and 5 4.2, Neck pain, leg weakness, abnormal reflexes TECHNIQUE: Multiplanar, multisequence images of the cervical spine were acquired without contrast. FINDINGS: No craniocervical junction unremarkable, predental space widening, or prevertebral soft tissue swelli ng. Mild heterogeneous marrow signal without suspicious bone marrow replacement. Some mild edematous Modic type I endplate changes present particularly towards the left at C5-C6. Moderate to advanced degenerative disc disease especially C4-C7 levels with narrowed, desiccated disc s and disc osteophyte complex formation. Moderate degenerative disc disease extends into the visuali zed upper thoracic spine. Multilevel uncovertebral joint and facet arthropathy is also present with ligamentum flavum thickenin g particularly at C6-C7. There is reversal of the normal cervical lordosis. Degenerative grade 1 retrolisthesis C5-C6. Remaini ng alignment is maintained. Small disc osteophyte complexes particularly at C4-C5 and C5-C6 impress onto the ventral thecal sac b ut does not contribute to any significant spinal canal stenosis. At C4-C5, change result in moderate to severe left and moderate right neural foraminal stenosis. At C5-C6, changes result in severe bilateral neural foraminal stenosis. At C6-C7, moderate bilateral neural foraminal stenosis. At C7-T1, there is mild to moderate left and mild right neural foraminal stenosis. Normal course, caliber, signal intensity of the cervical spinal cord. Some patchy artifact are presen t along some portions of the cord. IMPRESSION: 1. Moderate to advanced degenerative disc disease especially C4-C7 levels. Reversal of the normal cer vical lordosis and degenerative grade 1 retrolisthesis C5-C6. 2. Multilevel facet and uncovertebral joint arthropathy is present. 3. Small disc osteophyte complexes particularly at C4-C5 and C5-C6 without significant spinal canal s tenosis. 4. Variable neuroforaminal stenoses as outlined above, severe on both sides at C5-C6.
== END | disposition home or self-care (01) ==
LOC: RADMRIMAIN 11:28
PROVIDERS: ATTEND Psychiatry & Neurology Neurology
DX: M50.321 Other cervical disc degeneration at C4-C5 level (principal); M43.12 Spondylolisthesis, cervical region; M47.812 Spondylosis without myelopathy or radiculopathy, cervical region; M25.78 Osteophyte, vertebrae; M48.02 Spinal stenosis, cervical region
CPT/HCPCS: 72141

== ENCOUNTER 2024-05-13 21:19 | Inpatient (IN) | payer MEDICARE ==
--- NOTE | 2024-05-13 21:40 | ED ---
General Adult HPI - General Chief complaint: Fall Stated complaint: Fall Time Seen by Provider: 05/13/24 21:26 Source: patient, EMS, RN notes reviewed Mode of arrival: EMS - History of Present Illness Initial comments: 74-year-old female presents to the emergency department for evaluation of left hip pain following a fall. She states that she tripped over her slipper at home today causing her to fall onto her left hip. She does report hitting her head although she reports it "it was not hard." She denies loss of consciousness, blood thinners, headache. Patient only reporting pain in her left hip. She does report a prior hip replacement. She states that this was done in [address] Phillips at [facility]. - Related Data Home Medications Medication Instructions Recorded Confirmed ALPRAZolam [Xanax] 0.5 mg PO BID PRN 05/30/15 05/14/24 DULoxetine HCL [Cymbalta] 60 mg PO DAILY 05/30/15 05/14/24 Fesoterodine Fumarate [Toviaz] 8 mg PO HS 05/30/15 05/14/24 Cimetidine [Tagamet] 800 mg PO BID 02/22/20 05/14/24 HYDROcodone/IBUPROFEN 7.5-200 1 tab PO Q6H PRN 02/22/20 05/14/24 [Vicoprofen 7.5-200 mg] Losartan [Cozaar] 50 mg PO DAILY 02/22/20 05/14/24 Meloxicam [Mobic] 15 mg PO DAILY 02/22/20 05/14/24 Atorvastatin [Lipitor] 40 mg PO HS 10/05/22 05/14/24 Potassium Chloride [Potassium 20 meq PO BID 10/05/22 05/14/24 Chloride ER (K-Dur GEQ)] carvediloL 12.5 mg PO BID 10/05/22 05/14/24 Buprenorphine [Butrans 10 MCG/HOUR] 1 patch TRANSDERM BOUCHER 05/14/24 05/14/24 Dicyclomine [Bentyl] 10 mg PO TID 05/14/24 05/14/24 Levothyroxine Sodium [Synthroid] 88 mcg PO DAILY 05/14/24 05/14/24 Linaclotide [Linzess] 72 mcg PO DAILY 05/14/24 05/14/24 hydroCHLOROthiazide [Hydrodiuril] 25 mg PO DAILY 05/14/24 05/14/24 rOPINIRole HCL [Requip] 1 mg PO DAILY@1400 05/14/24 05/14/24 rOPINIRole HCL [Requip] 2 mg PO HS 05/14/24 05/14/24 Allergies Allergy/AdvReac Type Severity Reaction Status Date / Time nickel Allergy Rash/Hives Verified 05/14/24 09:05 acetaminophen [From Tylenol] AdvReac "avoids Verified 05/14/24 09:05 because causes excessive urination" erythromycin base AdvReac stomach Verified 05/14/24 09:05 cramps Review of Systems ROS Statement: Those systems with pertinent positive or pertinent negative responses have been documented in the HPI. ROS Other: All systems not noted in ROS Statement are negative. Past Medical History Past Medical History: Coronary Artery Disease (CAD), Deep Vein Thrombosis (DVT), Fibromyalgia, GERD/Reflux, Hyperlipidemia, Hypertension, Osteoarthritis (OA), Sleep Apnea/CPAP/BIPAP, Thyroid Disorder Additional Past Medical History / Comment(s): SOB with any exertion, peptic ulcers, bilateral leg dvts, overactive bladder, VIKKI with cpap. History of Any Multi-Drug Resistant Organisms: None Reported Past Surgical History: Breast Surgery, Cholecystectomy, Heart Catheterization With Stent, Hysterectomy, Joint Replacement, Orthopedic Surgery, Tonsillectomy, Tubal Ligation Additional Past Surgical History / Comment(s): sx:joint replacements: left hip, gurinder. shoulder, right knee. multiple foot/toe surgeries, finger surgery right index, bilateral thumb surg. carpal tunnel repair, breast cyst R aspirated, L breast benign nodule, colonoscopy,. bilateral cataracts removed. sinus surg. Past Anesthesia/Blood Transfusion Reactions: No Reported Reaction Additional Past Anesthesia/Blood Transfusion Reaction / Comment(s): no blood transfusions Date of Last Stent Placement:: 05/2021 Past Psychological History: Anxiety Smoking Status: Former smoker Past Alcohol Use History: Rare Past Drug Use History: None Reported - Past Family History Mother Family Medical History: Cancer, Hyperlipidemia Additional Family Medical History / Comment(s): CA: ovarian, lymph, breast, bones Father Family Medical History: Cancer, Coronary Artery Disease (CAD), Myocardial Infarction (AK), Rheumatoid Arthritis (RA) Additional Family Medical History / Comment(s): Father had AK at age 67yrs General Exam Limitations: no limitations General appearance: alert, in no apparent distress Head exam: Present: atraumatic, normocephalic, normal inspection Eye exam: Present: normal appearance, PERRL, EOMI. Absent: scleral icterus, conjunctival injection, periorbital swelling ENT exam: Present: normal exam, mucous membranes moist Respiratory exam: Present: normal lung sounds bilaterally. Absent: respiratory distress, wheezes, rales, rhonchi, stridor Cardiovascular Exam: Present: regular rate, normal rhythm, normal heart sounds. Absent: systolic murmur, diastolic murmur, rubs, gallop, clicks GI/Abdominal exam: Present: soft. Absent: distended, tenderness, guarding, rebound, rigid Extremities exam: Present: tenderness, normal capillary refill, other (DP and PT pulses 2+, Tenderness palpation of the left lateral hip decreased range of motion with flexion extension at the right hip). Absent: full ROM Neurological exam: Present: alert, oriented X3 Psychiatric exam: Present: normal affect, normal mood Skin exam: Present: warm, dry, intact, normal color. Absent: rash Course Vital Signs 05/13/24 05/13/24 05/14/24 21:20 23:00 00:00 Temperature 98.9 F Pulse Rate 83 82 85 Respiratory 20 18 18 Rate Blood Pressure 181/87 142/75 149/80 O2 Sat by Pulse 97 97 95 Oximetry 05/14/24 05/14/24 05/14/24 02:00 03:57 04:00 Temperature Pulse Rate 86 97 Respiratory 18 18 Rate Blood Pressure 123/78 142/74 O2 Sat by Pulse 94 L 87 L 97 Oximetry 05/14/24 05/14/24 05/14/24 05:26 07:07 10:27 Temperature Pulse Rate 79 71 78 Respiratory 18 16 16 Rate Blood Pressure 138/70 136/77 122/77 O2 Sat by Pulse 98 97 95 Oximetry Medical Decision Making - Medical Decision Making Was pt. sent in by a medical professional or institution (, PA, WEAPONS OFFICER, urgent care, hospital, or long term...) When possible be specific @ -No Did you speak to anyone other than the patient for history (EMS, parent, family, police, friend...)? What history was obtained from this source @ -No Did you review nursing and triage notes (agree or disagree)? Why? @ -I reviewed and agree with nursing and triage notes Were old charts reviewed (outside hosp., previous admission, EMS record, old EKG, old radiological studies, urgent care reports/EKG's, long term records)? Report findings @ -No old charts were reviewed Differential Diagnosis (chest pain, altered mental status, abdominal pain women, abdominal pain men, vaginal bleeding, weakness, fever, dyspnea, syncope, headache, dizziness, GI bleed, back pain, seizure, CVA, palpatations, mental health, musculoskeletal)? @ -Differential Musculoskeletal Muscular strain, contusion, ligament sprain, fracture, arthritis, septic arthritis, bursitis, cellulitis, muscle spasm, nerve compression, DVT, arterial occlusion, herpes zoster, electrolyte abnormality, tumor.... This is not meant to be in all inclusive list EKG interpreted by me (3pts min.). @ -EKG at 2134 shows sinus rhythm rate 79, W[place] 195, QRS 70, QT/QTc [id number] X-rays interpreted by me (1pt min.). @ -X-ray of the left hip shows subtle cortical step-off along the lateral aspect of the proximal left femur which could reflect a nondisplaced fracture CT interpreted by me (1pt min.). @ -CT of the hip obtained shows a nondisplaced periprosthetic fracture of the subtrochanteric region U/S interpreted by me (1pt. min.). @ -None done What testing was considered but not performed or refused? (CT, X-rays, U/S, labs)? Why? @ -None What meds were considered but not given or refused? Why? @ -None Did you discuss the management of the patient with other professionals (professionals i.e. , PA, WEAPONS OFFICER, lab, RT, psych nurse, social service coordinator, fashion supervisor, teacher, forest fire control officer, lining caser)? Give summary @ -Management discussed with Dr. Escalera who reviewed the images and believes that this is a stable fracture he is accepting of the admission for pain control and possible placement Was smoking cessation discussed for >3mins.? @ -No Was critical care preformed (if so, how long)? @ -No Were there social determinants of health that impacted care today? How? (Homelessness, low income, unemployed, alcoholism, drug addiction, transportatio n, low edu. Level, literacy, decrease access to med. care, fdc, rehab)? @ -No Was there de-escalation of care discussed even if they declined (Discuss DNR or withdrawal of care, Hospice)? DNR status @ -No What co-morbidities impacted this encounter? (DM, HTN, Smoking, COPD, CAD, Cancer, CVA, ARF, Chemo, Hep., AIDS, mental health diagnosis, sleep apnea, morbid obesity)? @ -None Was patient admitted / discharged? Hospital course, mention meds given and route, prescriptions, significant lab abnormalities, going to OR and other pertinent info. @ -Admitted. Patient presented to the emergency department for evaluation of fall with left hip injury. Reports history of hip replacement. X-ray of the left hip shows subtle cortical step-off along the lateral aspect of the proximal left femur which could reflect a nondisplaced fracture. Patient unable to weightbear and therefore, CT hip was obtained. Patient found to have non displaced periprosthetic fracture of the subtrochanteric region. Case discussed with orthopedics, Dr. Escalera who reports that this appears to be a stable fracture and likely nonsurgical. He is accepting of the admission of the patient for pain control and possible rehab placement. Case discussed with Dr. Gallegos Undiagnosed new problem with uncertain prognosis? @ -No Drug Therapy requiring intensive monitoring for toxicity (Heparin, Nitro, Insulin, Cardizem)? @ -No Were any procedures done? @ -No Diagnosis/symptom? @ -Hip fracture Acute, or Chronic, or Acute on Chronic? @ -Acute Uncomplicated (without systemic symptoms) or Complicated (systemic symptoms)? @ -Uncomplicated Side effects of treatment? @ -No Exacerbation, Progression, or Severe Exacerbation? @ -No Poses a threat to life or bodily function? How? (Chest pain, USA, AK, pneumonia, PE, COPD, DKA, ARF, appy, cholecystitis, CVA, Diverticulitis, Homicidal, Suicidal, threat to staff... and all critical care pts) @ -No - Lab Data Result diagrams: 05/13/24 21:24 05/13/24 21:24 Lab Results 05/13/24 05/13/24 Range/Units 21:24 21:24 WBC 8.7 (3.8-10.6) k/uL RBC 4.59 (3.80-5.40) m/uL Hgb 12.8 (11.4-16.0) gm/dL Hct 38.5 (34.0-46.0) % MCV 83.8 (80.0-100.0) fL MCH 27.9 (25.0-35.0) pg MCHC 33.3 (31.0-37.0) g/dL RDW 15.0 (11.5-15.5) % Plt Count 323 (150-450) k/uL MPV 7.4 Neutrophils % 77 % Lymphocytes % 12 % Monocytes % 6 % Eosinophils % 2 % Basophils % 0 % Neutrophils # 6.7 (1.3-7.7) k/uL Lymphocytes # 1.0 (1.0-4.8) k/uL Monocytes # 0.6 (0-1.0) k/uL Eosinophils # 0.1 (0-0.7) k/uL Basophils # 0.0 (0-0.2) k/uL Sodium 130 L (137-145) mmol/L Potassium 4.5 (3.5-5.1) mmol/L Chloride 93 L (98-107) mmol/L Carbon Dioxide 29 (22-30) mmol/L Anion Gap 8 mmol/L BUN 17 (7-17) mg/dL Creatinine 0.62 (0.52-1.04) mg/dL Est GFR (CKD-EPI)AfAm >90 (>60 ml/min/1.73 sqM) Est GFR (CKD-EPI)NonAf 89 (>60 ml/min/1.73 sqM) Glucose 95 (74-99) mg/dL Calcium 9.1 (8.4-10.2) mg/dL Total Bilirubin 0.5 (0.2-1.3) mg/dL AST 38 H (14-36) U/L ALT 28 (4-34) U/L Alkaline Phosphatase 175 H (38-126) U/L Total Protein 6.9 (6.3-8.2) g/dL Albumin 4.1 (3.5-5.0) g/dL Disposition Clinical Impression: Fall, Hip fracture Disposition: ADMITTED IP TO THIS [facility] Condition: Stable Is patient prescribed a controlled substance at d/c from ED?: No
[2024-05-13] MEDS: MORPHINE SULFATE 4 MG/ML SYRINGE IVP STA (21:45)
--- NOTE | 2024-05-13 22:06 | XR ---
EXAMINATION TYPE: XR Hip Complete LT DATE OF EXAM: 05/13/2024 9:59 PM COMPARISON: None. CLINICAL INDICATION: Female, 74 years old with history of fall; H TECHNIQUE: XR Hip Complete LT; Frontal and lateral views FINDINGS: Subtle cortical step-off along the lateral aspect of the proximal left femur. Left hip arth roplasty in place without evidence of hardware consultation. IMPRESSION: Subtle cortical step-off along the lateral aspect of the proximal left femur which could reflect a no ndisplaced fracture but is indeterminate on this radiographic study. Consider further evaluation with dedicated CT if patient is unable to bear weight or as clinically indicated. No dislocation or other hardware is identified. [facility], , 05/13/2024 10:04 PM
--- NOTE | 2024-05-14 00:06 | CT ---
EXAM: CT Left Lower Extremity Without Intravenous Contrast, Hip CLINICAL HISTORY: ITS.REASON CT Reason: fall TECHNIQUE: Axial computed tomography images of the left hip without intravenous contrast. CTDI is 22.9 mGy and DLP is 749.3 mGy-cm. This CT exam was performed using one or more of the following dose reduction techniques: automated exposure control, adjustment of the mA and/or kV according to patient size, and/or use of iterative reconstruction technique. COMPARISON: No relevant prior studies available. FINDINGS: Bones/joints: Status-post LEFT hip arthroplasty. Nondisplaced periprosthetic fracture of the subtrochanteric region. Soft tissues: Unremarkable. IMPRESSION: Status-post LEFT hip arthroplasty. Nondisplaced periprosthetic fracture of the subtrochanteric region. Orthopedic surgical evaluation recommended.
[2024-05-14] MEDS ORDERED: NALOXONE 0.4 MG/ML 1 ML VIAL IV PRN (00:39)
[2024-05-14] MEDS ORDERED: HYDROmorphone 0.5 MG/0.5 ML SYRINGE IVP PRN (00:44)
[2024-05-14] MEDS: HYDROmorphone 1 MG/ML 1 ML SYRINGE IVP PRN (01:19)
[2024-05-14 01:24] LABS: Basophils % (A) 0 %; Eosinophils # (A) 0.1 k/uL (0-0.7); Eosinophils % (A) 2 %; HCT 38.5 % (34.0-46.0); HGB 12.8 gm/dL (11.4-16.0); Lymphocytes % (A) 12 %; MCH 27.9 pg (25.0-35.0); MCHC 33.3 g/dL (31.0-37.0); MCV 83.8 fL (80.0-100.0); Mean Platelet Volume 7.4; Monocytes # (A) 0.6 k/uL (0-1.0); Monocytes % (A) 6 %; Neutrophils # (A) 6.7 k/uL (1.3-7.7); Neutrophils % (A) 77 %; Platelet Count 323 k/uL (150-450); RBC 4.59 m/uL (3.80-5.40); WBC 8.7 k/uL (3.8-10.6)
[2024-05-14 01:29] LABS: ALT 28 U/L (4-34); AST 38 U/L (14-36); African American GFR (CKD) >90 (>60 ml/min/1.73 sqM); Albumin 4.1 g/dL (3.5-5.0); Alkaline Phosphatase 175 U/L (38-126); Anion Gap 8 mmol/L; Blood Urea Nitrogen 17 mg/dL (7-17); Calcium 9.1 mg/dL (8.4-10.2); Carbon Dioxide 29 mmol/L (22-30); Chloride 93 mmol/L (98-107); Glucose 95 mg/dL (74-99); Non-African American GFR(CKD) 89 (>60 ml/min/1.73 sqM); Potassium 4.5 mmol/L (3.5-5.1); Sodium 130 mmol/L (137-145); Total Bilirubin 0.5 mg/dL (0.2-1.3); Total Protein 6.9 g/dL (6.3-8.2)
--- NOTE | 2024-05-14 08:26 | P.HPOR ---
History of Present Illness H&P Date: 05/14/24 Chief Complaint: Left hip pain s/p fall Dary is a 74-year-old female with a past medical history including CAD, DVT, fibromyalgia, hypertension, hyperlipidemia, and sleep apnea, who presented to the emergency department at [facility] for evaluation of left hip pain following a fall. She states that she tripped over her slipper at home yesterday and she fell onto her left hip. She does report hitting her head although she reports it "it was not hard." She denies loss of consciousness, dizziness, or headache. Patient only reporting pain in her left hip. She states her left hip replacement was done in [address] Phillips at [facility]. She is post op 6 weeks from a left total knee arthroplasty by Dr. Coleman at [facility]. She was using a walker but recently transitioned to a cane. The patient states her knee is feeling ok after the fall. Review of Systems Constitutional: Denies chills, Denies fatigue, Denies fever Cardiovascular: Denies chest pain, Denies shortness of breath Respiratory: Denies cough Gastrointestinal: Denies diarrhea, Denies nausea, Denies vomiting Musculoskeletal: left: hip pain, hip stiffness, hip swelling Past Medical History Past Medical History: Coronary Artery Disease (CAD), Deep Vein Thrombosis (DVT), Fibromyalgia, GERD/Reflux, Hyperlipidemia, Hypertension, Osteoarthritis (OA), Sleep Apnea/CPAP/BIPAP, Thyroid Disorder Additional Past Medical History / Comment(s): SOB with any exertion, peptic ulcers, bilateral leg dvts, overactive bladder, VIKKI with cpap. History of Any Multi-Drug Resistant Organisms: None Reported Past Surgical History: Breast Surgery, Cholecystectomy, Heart Catheterization With Stent, Hysterectomy, Joint Replacement, Orthopedic Surgery, Tonsillectomy, Tubal Ligation Additional Past Surgical History / Comment(s): sx:joint replacements: left hip, gurinder. shoulder, right knee. multiple foot/toe surgeries, finger surgery right index, bilateral thumb surg. carpal tunnel repair, breast cyst R aspirated, L breast benign nodule, colonoscopy,. bilateral cataracts removed. sinus surg. Past Anesthesia/Blood Transfusion Reactions: No Reported Reaction Additional Past Anesthesia/Blood Transfusion Reaction / Comment(s): no blood transfusions Date of Last Stent Placement:: 05/2021 Past Psychological History: Anxiety Smoking Status: Former smoker Past Alcohol Use History: Rare Past Drug Use History: None Reported - Past Family History Mother Family Medical History: Cancer, Hyperlipidemia Additional Family Medical History / Comment(s): CA: ovarian, lymph, breast, bones Father Family Medical History: Cancer, Coronary Artery Disease (CAD), Myocardial Infarction ([place]), Rheumatoid Arthritis ([place]) Additional Family Medical History / Comment(s): Father had [place] at age 67yrs Medications and Allergies Home Medications Medication Instructions Recorded Confirmed Type DULoxetine HCL [Cymbalta] 60 mg PO DAILY 05/30/15 05/14/24 History Fesoterodine Fumarate [Toviaz] 8 mg PO HS 05/30/15 05/14/24 History Cimetidine [Tagamet] 800 mg PO BID 02/22/20 05/14/24 History Losartan [Cozaar] 50 mg PO DAILY 02/22/20 05/14/24 History Meloxicam [Mobic] 15 mg PO DAILY 02/22/20 05/14/24 History Atorvastatin [Lipitor] 40 mg PO HS 10/05/22 05/14/24 History carvediloL 12.5 mg PO BID 10/05/22 05/14/24 History Dicyclomine [Bentyl] 10 mg PO TID 05/14/24 05/14/24 History Levothyroxine Sodium [Synthroid] 88 mcg PO DAILY 05/14/24 05/14/24 History Linaclotide [Linzess] 72 mcg PO DAILY 05/14/24 05/14/24 History rOPINIRole HCL [Requip] 1 mg PO DAILY@1400 05/14/24 05/14/24 History rOPINIRole HCL [Requip] 2 mg PO HS 05/14/24 05/14/24 History ALPRAZolam [Xanax] 0.5 mg PO BID PRN #6 tab 05/16/24 Rx Aspirin 81 mg PO DAILY tab 05/16/24 Rx Buprenorphine [Butrans 10 MCG/HOUR] 1 patch TRANSDERM BOUCHER #1 patch 05/16/24 Rx Enoxaparin [Lovenox] 40 mg SQ DAILY each 05/16/24 Rx HYDROcodone/IBUPROFEN 7.5-200 1 tab PO Q6HR PRN #30 tab 05/16/24 Rx [Vicoprofen 7.5-200 mg] Psyllium Husk 100% [Metamucil 6 gm PO DAILY packet 05/16/24 Rx Packet] Sennosides-Docusate Sodium 2 tab PO DAILY #30 tablet 05/16/24 Rx [Senokot-S] Allergies Allergy/AdvReac Type Severity Reaction Status Date / Time nickel Allergy Rash/Hives Verified 05/14/24 09:05 acetaminophen [From Tylenol] AdvReac "avoids Verified 05/14/24 09:05 because causes excessive urination" erythromycin base AdvReac stomach Verified 05/14/24 09:05 cramps Physical Examination The patient is an 74 year-old female in no acute distress. She is alert and oriented 3. The patient's head is normocephalic, atraumatic. No pain upon palpation to the cervical spine, no step-offs noted. Exam of the bilateral upper extremities reveal no obvious deformities or wounds. Exam of the right lower extremity reveals no deformity or wounds. No pain upon range of motion of the right leg. Exam of the left lower extremity reveals severe guarding to the left hip. There is pain to palpation to the lateral hip. There is pain on log rolling of the left leg. There is a well healed incision to the left hip and left anterior knee. Calf is soft and nontender. She is able to wiggle his toes. Circulatory status is intact. Results CT of the left hip dated 05/13/2024 reveals status post left hip arthroplasty. Nondisplaced periprosthetic fracture of the greater trochanter. - Labs Labs: Abnormal Lab Results - Last 24 Hours (Table) 05/13/24 Range/Units 21:24 Sodium 130 L (137-145) mmol/L Chloride 93 L (98-107) mmol/L AST 38 H (14-36) U/L Alkaline Phosphatase 175 H (38-126) U/L H & H 05/13/24 Range/Units 21:24 Hgb 12.8 (11.4-16.0) gm/dL Hct 38.5 (34.0-46.0) % Result Diagrams: 05/16/24 02:50 05/16/24 02:50 Assessment and Plan (1) Greater trochanter fracture Status: Acute Code(s): S72.113A - DISP FX OF GREATER TROCHANTER OF UNSP FEMUR, INIT SNOMED Code(s): 987105348 (2) Presence of left artificial hip joint Status: Acute Code(s): Z96.642 - PRESENCE OF LEFT ARTIFICIAL HIP JOINT S NOMED Code(s): 811240354 (3) Fall Status: Acute Code(s): W19.XXXA - UNSPECIFIED FALL, INITIAL ENCOUNTER SNOMED Code(s): 3409024 Plan: The clinical and x-ray findings were discussed with the patient and Dr. Escalera. The fracture is stable and nondisplaced, no surgical intervention is needed at this time. She will be toe-touch weightbearing on the left leg with a walker. Pain control. PT/OT have been consulted. Case management consult for possible placement to subacute rehab if needed. X-rays of the left knee was ordered due to fall and recent TKA. We will continue to follow the patient closely and make further recommendations as needed. Patient was seen and independently examined, I agree with the above history and physical exam. Imaging shows a stable nondisplaced fracture involving the greater trochanter without evidence of subsidence of her femoral stem This can be managed conservatively with toe-touch weightbearing and walker for ambulating Patient can follow-up either with our office on an outpatient basis for further follow-up of this fracture or with her established orthopedic practice.
--- NOTE | 2024-05-14 10:39 | XR ---
Left knee. HISTORY: Pain COMPARISON: None TECHNIQUE: 2 views left knee were obtained FINDINGS: There is a left knee prosthesis in satisfactory position. There is no acute fracture or dislocation. There is no ostial lysis There is a large joint effusion. IMPRESSION: 1. Large joint effusion. 2. Satisfactory appearance total left knee prosthesis without acute fracture or dislocation. [facility], Workstation: [facility], 05/14/2024 10:36 AM
[2024-05-14] MEDS: carvediloL 12.5 MG TAB PO SCH (11:00)
[2024-05-14] MEDS: DULoxetine HCL 60 MG CAPSULE.DR PO SCH (11:01)
[2024-05-14] MEDS: LEVOTHYROXINE 88 MCG TAB PO SCH (11:01)
[2024-05-14] MEDS: Linaclotide [Linzess] 72 MCG Capsule PO SCH (11:01)
[2024-05-14] MEDS: LOSARTAN 50 MG TAB PO SCH (11:01)
[2024-05-14] MEDS: BUPRENORPHINE TRANSDERM SCH (11:01)
[2024-05-14] MEDS: traMADol 50 MG TAB PO PRN (14:20)
--- NOTE | 2024-05-14 14:25 | P.CONS ---
History of Present Illness - Reason for Consult Consult date: 05/14/24 - History of Present Illness History of present illness: 74-year-old female with past medical history significant for coronary artery disease, remote DVT, fibromyalgia, hypertension, hyperlipidemia, sleep apnea who presented to ER for evaluation of left hip pain following a mechanical fall. Patient stated that she tripped over her slipper, denied loss of consciousness, patient fell onto her left hip, also reported slight bump on the head. Patient continued to have left hip pain after a fall. Patient had left hip replacement in 2007 and 2008. Patient is postop 6 weeks from left total knee arthroplasty. Patient was using her walker but recently was transition to a cane. Afebrile, heart rate 80, respiratory rate 18, blood pressure 147/76, saturating 97% room air. CBC unremarkable BMP unremarkable except mildly low sodium 130. CT left hipstatus post left hip arthroplasty, nondisplaced periprosthetic fracture of the subtrochanteric region. Left knee x-ray showed large joint effusion, satisfactory appearance of total left knee prosthesis without acute fracture or dislocation. Assessment and plan: Fall: Left hip pain--nondisplaced periprosthetic fracture of trochanteric region. Recent left knee arthroplasty: Pain control Fall precautions-PT/OT consult Orthopedic consultedno indication for surgical intervention, senior research project manager consult for possible subacute rehab discharge History of DVT: Patient has history of remote DVT in the past in the 1970s Not on anticoagulation anymore Continue DVT prophylaxis History of CAD/PCI: Hypertension: Hyperlipidemia: Continue home meds including aspirin, statin, Coreg, losartan. Hypothyroidism: Continue Synthroid Hyponatremia: Mild hyponatremia, patient asymptomatic Hold hydrochlorothiazide Monitor sodium. DVT prophylaxis Subcutaneous heparin Monitor vital signs and labs Labs and medication were reviewed. Continue same treatment. Further recommendations as per clinical course of the patient PHYSICAL EXAMINATION: GENERAL: The patient is A&O x3, NAD HEENT: EOMI, Sclerae anicteric, Moist Mucous membranes Neck: Supple, Non tender, No JVD PULMONARY: Equal breath souds B/L, No wheezing, No crackles. CARDIOVASCULAR: S1, S2 present. No murmurs, rubs, or gallops. ABDOMEN: Soft, nontender, nondistended, normoactive bowel sounds. No guarding or rebound tenderness. MUSCULOSKELETAL: No edema, No cyanosis. No clubbing. Normal ROM. Intact peripheral pulses. Left kneeeffusion. Left hipmild tenderness. NEUROLOGICAL: CN 2-12 grossly intact. No FND REVIEW OF SYSTEMS: CONSTITUTIONAL: No fever, no malaise, no fatigue. HEENT: No recent visual problems or hearing problems. Denied any sore throat. CARDIOVASCULAR: No chest pain, orthopnea, PND, no palpitations, no syncope. PULMONARY: No shortness of breath, no cough, no hemoptysis. GASTROINTESTINAL: No diarrhea, no nausea, no vomiting, no abdominal pain. NEUROLOGICAL: No headaches, no weakness, no numbness. HEMATOLOGICAL: Denies any bleeding or petechiae. GENITOURINARY: Denies any burning micturition, frequency, or urgency. MUSCULOSKELETAL/RHEUMATOLOGICAL: Complains of left hip pain, worse with movement. ENDOCRINE: Denies any polyuria or polydipsia. The rest of the 14-point review of systems is negative. Dictation was produced using [email or web address] dictation software. please excuse any grammatical, word or spelling errors. Past Medical History Past Medical History: Coronary Artery Disease (CAD), Deep Vein Thrombosis (DVT), Fibromyalgia, GERD/Reflux, Hyperlipidemia, Hypertension, Osteoarthritis (OA), Sleep Apnea/CPAP/BIPAP, Thyroid Disorder Additional Past Medical History / Comment(s): SOB with any exertion, peptic ulcers, bilateral leg dvts, overactive bladder, VIKKI with cpap. History of Any Multi-Drug Resistant Organisms: None Reported Past Surgical History: Breast Surgery, Cholecystectomy, Heart Catheterization With Stent, Hysterectomy, Joint Replacement, Orthopedic Surgery, Tonsillectomy, Tubal Ligation Additional Past Surgical History / Comment(s): sx:joint replacements: left hip, gurinder. shoulder, right knee. multiple foot/toe surgeries, finger surgery right index, bilateral thumb surg. carpal tunnel repair, breast cyst R aspirated, L breast benign nodule, colonoscopy,. bilateral cataracts removed. sinus surg. Past Anesthesia/Blood Transfusion Reactions: No Reported Reaction Additional Past Anesthesia/Blood Transfusion Reaction / Comm: no blood transfusions Date of Last Stent Placement:: 05/2021 Past Psychological History: Anxiety Smoking Status: Former smoker Past Alcohol Use History: Rare Past Drug Use History: None Reported - Past Family History Mother Family Medical History: Cancer, Hyperlipidemia Additional Family Medical History / Comment(s): CA: ovarian, lymph, breast, bones Father Family Medical History: Cancer, Coronary Artery Disease (CAD), Myocardial Infarction ([place]), Rheumatoid Arthritis ([place]) Additional Family Medical History / Comment(s): Father had [place] at age 67yrs Medications and Allergies Home Medications Medication Instructions Recorded Confirmed Type ALPRAZolam [Xanax] 0.5 mg PO BID PRN 05/30/15 05/14/24 History DULoxetine HCL [Cymbalta] 60 mg PO DAILY 05/30/15 05/14/24 History Fesoterodine Fumarate [Toviaz] 8 mg PO HS 05/30/15 05/14/24 History Cimetidine [Tagamet] 800 mg PO BID 02/22/20 05/14/24 History HYDROcodone/IBUPROFEN 7.5-200 1 tab PO Q6H PRN 02/22/20 05/14/24 History [Vicoprofen 7.5-200 mg] Losartan [Cozaar] 50 mg PO DAILY 02/22/20 05/14/24 History Meloxicam [Mobic] 15 mg PO DAILY 02/22/20 05/14/24 History Atorvastatin [Lipitor] 40 mg PO HS 10/05/22 05/14/24 History Potassium Chloride [Potassium 20 meq PO BID 10/05/22 05/14/24 History Chloride ER (K-Dur GEQ)] carvediloL 12.5 mg PO BID 10/05/22 05/14/24 History Buprenorphine [Butrans 10 MCG/HOUR] 1 patch TRANSDERM BOUCHER 05/14/24 05/14/24 History Dicyclomine [Bentyl] 10 mg PO TID 05/14/24 05/14/24 History Levothyroxine Sodium [Synthroid] 88 mcg PO DAILY 05/14/24 05/14/24 History Linaclotide [Linzess] 72 mcg PO DAILY 05/14/24 05/14/24 History hydroCHLOROthiazide [Hydrodiuril] 25 mg PO DAILY 05/14/24 05/14/24 History rOPINIRole HCL [Requip] 1 mg PO DAILY@1400 05/14/24 05/14/24 History rOPINIRole HCL [Requip] 2 mg PO HS 05/14/24 05/14/24 History Allergies Allergy/AdvReac Type Severity Reaction Status Date / Time nickel Allergy Rash/Hives Verified 05/14/24 09:05 acetaminophen [From Tylenol] AdvReac "avoids Verified 05/14/24 09:05 because causes excessive urination" erythromycin base AdvReac stomach Verified 05/14/24 09:05 cramps Physical Exam Vitals: Vital Signs Temp Pulse Pulse Resp BP BP Pulse Ox 05/14/24 13:20 97.7 F 80 18 147/76 97 05/14/24 10:27 78 16 122/77 95 05/14/24 07:07 71 16 136/77 97 05/14/24 05:26 79 18 138/70 98 05/14/24 04:00 97 18 142/74 97 05/14/24 03:57 87 L 05/14/24 02:00 86 18 123/78 94 L 05/14/24 00:00 85 18 149/80 95 05/13/24 23:00 82 18 142/75 97 05/13/24 21:20 98.9 F 83 20 181/87 97 Intake and Output 05/13/24 05/14/24 05/14/24 22:59 06:59 14:59 Other: Weight 86.183 kg 86.183 kg Results CBC & Chem 7: 05/13/24 21:24 05/13/24 21:24 Labs: Abnormal Lab Results - Last 24 Hours (Table) 05/13/24 Range/Units 21:24 Sodium 130 L (137-145) mmol/L Chloride 93 L (98-107) mmol/L AST 38 H (14-36) U/L Alkaline Phosphatase 175 H (38-126) U/L
[2024-05-14] MEDS: IBUPROFEN 400 MG TAB PO PRN (15:56)
[2024-05-14] MEDS: DICYCLOMINE 10 MG CAP PO SCH (15:57)
[2024-05-14] MEDS: ASPIRIN 81 MG PO SCH (15:57)
[2024-05-14] MEDS: TROSPIUM CHLORIDE 20 MG TABLET PO SCH (20:39)
[2024-05-14] MEDS: ATORVASTATIN 40 MG TAB PO SCH (20:41)
[2024-05-14] MEDS: FAMOTIDINE 20 MG TAB PO SCH (20:41)
[2024-05-14] MEDS: HEPARIN SODIUM,PORCINE 5,000 UNIT/ML 1 ML VIAL SQ SCH (20:41)
--- NOTE | 2024-05-15 09:03 | P.PN ---
Subjective Progress Note Date: 05/15/24 Principal diagnosis: Left hip greater troch fracture Dary is a 74-year-old female with a past medical history including CAD, DVT, fibromyalgia, hypertension, hyperlipidemia, and sleep apnea, who presented to the emergency department at [facility] for evaluation of left hip pain following a fall. She states that she tripped over her slipper at home yesterday and she fell onto her left hip. She does report hitting her head although she reports it "it was not hard." She denies loss of consciousness, dizziness, or headache. Patient only reporting pain in her left hip. She states her left hip replacement was done in [address] Phillips at [facility]. She is post op 6 weeks from a left total knee arthroplasty by Dr. Coleman at [facility]. She was using a walker but recently transitioned to a cane. The patient states her knee is feeling ok after the fall. 05/15/2024: The patient states her pain is severe still with movement. She was receiving Dilaudid IVP this morning. PT/OT are consulted to see the patient today. No new complaints. Objective - Vital Signs Vital signs: Vital Signs Temp 97.7 F 05/15/24 07:15 Pulse 74 05/15/24 07:15 Resp 18 05/15/24 07:15 BP 146/75 05/15/24 07:15 Pulse Ox 93 L 05/15/24 07:15 FiO2 Intake & Output 05/14/24 05/15/24 05/15/24 18:59 06:59 18:59 Intake Total 1650 Output Total 1650 Balance 0 Weight 86.183 kg Intake: Oral 1650 Output: Urine 1650 Other: Voiding Method External Catheter # Voids 2 - Exam The patient is an 74 year-old female in no acute distress. She is alert and oriented 3. Exam of the left lower extremity reveals severe guarding to the left hip. There is pain to palpation to the lateral hip. There is pain on log rolling of the left leg. There is a well healed incision to the left hip and left anterior knee. Calf is soft and nontender. She is able to wiggle his toes. Circulatory status is intact. - Labs CBC & Chem 7: 05/13/24 21:24 05/13/24 21:24 Assessment and Plan (1) Greater trochanter fracture Current Visit: Yes Status: Acute Code(s): S72.113A - DISP FX OF GREATER TROCHANTER OF UNSP FEMUR, INIT SNOMED Code(s): 869131416 (2) Presence of left artificial hip joint Current Visit: Yes Status: Acute Code(s): Z96.642 - PRESENCE OF LEFT ARTIFICIAL HIP JOINT SNOMED Code(s): 891051289 (3) Fall Current Visit: Yes Status: Acute Code(s): W19.XXXA - UNSPECIFIED FALL, INITIAL ENCOUNTER SNOMED Code(s): 2953551 Plan: The clinical and x-ray findings were discussed with the patient and Dr. Escalera. The fracture is stable and nondisplaced, no surgical intervention is needed at this time. She will be toe-touch weightbearing on the left leg with a walker. Pain control. PT/OT have been consulted. Case management consult for possible placement to subacute rehab if needed. We will continue to follow the patient closely and make further recommendations as needed.
[2024-05-15] MEDS: PSYLLIUM HUSK 100% 6 GM PACKET PO SCH (12:20)
[2024-05-15] MEDS: OXYMETAZOLINE 0.05% NASL SPRAY 1 SPRAY BOTTLE NASAL SCH (12:49)
[2024-05-15] MEDS: ENOXAPARIN 40 MG/0.4 ML SYRINGE SQ SCH (12:49)
[2024-05-15] MEDS: traMADol 50 MG TAB PO PRN (15:02)
[2024-05-15] MEDS: ALPRAZolam 0.5 MG TAB PO PRN (15:56)
--- NOTE | 2024-05-15 17:09 | P.PN ---
Progress Note - Text Progress Note Date: 05/15/24 History of present illness: 74-year-old female with past medical history significant for coronary artery disease, remote DVT, fibromyalgia, hypertension, hyperlipidemia, sleep apnea who presented to ER for evaluation of left hip pain following a mechanical fall. Patient stated that she tripped over her slipper, denied loss of consciousness, patient fell onto her left hip, also reported slight bump on the head. Patient continued to have left hip pain after a fall. Patient had left hip replacement in 2007 and 2008. Patient is postop 6 weeks from left total knee arthroplasty. Patient was using her walker but recently was transition to a cane. Afebrile, heart rate 80, respiratory rate 18, blood pressure 147/76, saturating 97% room air. CBC unremarkable BMP unremarkable except mildly low sodium 130. CT left hipstatus post left hip arthroplasty, nondisplaced periprosthetic fracture of the subtrochanteric region. Left knee x-ray showed large joint effusion, satisfactory appearance of total left knee prosthesis without acute fracture or dislocation. May 15: Up in a chair. Left hip pain. Some nasal congestion.-Nasal spray ordered. Patient is allowed toe-touch on the left side. Followed by PT OT. Eating well. Active Medications Alprazolam (Alprazolam 0.5 Mg Tab) 0.5 mg PO BID PRN PRN Reason: Anxiety Last Admin: 05/15/24 15:56 Dose: 0.5 mg Aspirin (Aspirin 81 Mg) 81 mg PO DAILY [facility] Last Admin: 05/15/24 08:46 Dose: 81 mg Atorvastatin Calcium (Atorvastatin 40 Mg Tab) 40 mg PO HS [facility] Last Admin: 05/14/24 20:41 Dose: 40 mg Carvedilol (Carvedilol 12.5 Mg Tab) 12.5 mg PO BID [facility] Last Admin: 05/15/24 08:46 Dose: 12.5 mg Dicyclomine HCl (Dicyclomine 10 Mg Cap) 10 mg PO TID [facility] Last Admin: 05/15/24 15:56 Dose: 10 mg Duloxetine HCl (Duloxetine Hcl 60 Mg Capsule.Dr) 60 mg PO DAILY [facility] Last Admin: 05/15/24 08:46 Dose: 60 mg Enoxaparin Sodium (Enoxaparin 40 Mg/0.4 Ml Syringe) 40 mg SQ DAILY [facility] Last Admin: 05/15/24 12:49 Dose: 40 mg Famotidine (Famotidine 20 Mg Tab) 40 mg PO BID [facility] Last Admin: 05/15/24 08:46 Dose: 40 mg Hydromorphone HCl (Hydromorphone 0.5 Mg/0.5 Ml Syringe) 0.5 mg IVP Q3HR PRN PRN Reason: Moderate Pain (Scale 4 to 6) Hydromorphone HCl (Hydromorphone 1 Mg/Ml 1 Ml Syringe) 1 mg IVP Q3HR PRN PRN Reason: Severe Pain (Scale 7 to 10) Last Admin: 05/15/24 16:07 Dose: 1 mg Ibuprofen (Ibuprofen 400 Mg Tab) 400 mg PO Q6HR PRN PRN Reason: Mild Pain or Fever > 100.5 Last Admin: 05/15/24 12:20 Dose: 400 mg Levothyroxine Sodium (Levothyroxine 88 Mcg Tab) 88 mcg PO 0630 [facility] Last Admin: 05/15/24 05:53 Dose: 88 mcg Losartan Potassium (Losartan 50 Mg Tab) 50 mg PO DAILY [facility] Last Admin: 05/15/24 08:46 Dose: 50 mg Naloxone HCl (Naloxone 0.4 Mg/Ml 1 Ml Vial) 0.2 mg IV Q2M PRN PRN Reason: Opioid Reversal Buprenorphine [ Butrans 10 Mcg/Hour] 10 Mcg/Hour Patch 1 patch TRANSDERM BOUCHER [facility] Last Admin: 05/14/24 11:01 Dose: Not Given Linaclotide [Linzess (] 72 Mcg Capsule) 1 each PO DAILY [facility] Last Admin: 05/15/24 16:07 Dose: 1 each Fesoterodine (Toviaz () E.R. 8 Mg Tablet) 1 each PO [facility] Oxymetazoline HCl (Oxymetazoline 0.05% Nasl [place] 1 [place] Bottle) 2 spray NASAL BID [facility] Last Admin: 05/15/24 12:49 Dose: 2 spray Psyllium Hydrophilic Mucilloid (Psyllium Husk 100% 6 Gm Packet) 6 gm PO DAILY [facility] Last Admin: 05/15/24 12:20 Dose: 6 gm Ropinirole HCl (Ropinirole Hcl 1 Mg Tab) 1 mg PO DAILY@1400 [facility] Last Admin: 05/15/24 15:01 Dose: 1 mg Ropinirole HCl (Ropinirole Hcl 1 Mg Tab) 2 mg PO HS [facility] Last Admin: 05/14/24 20:41 Dose: 2 mg Tramadol HCl (Tramadol 50 Mg Tab) 50 mg PO Q4HR PRN PRN Reason: Pain Scale 1 to 5 Last Admin: 05/14/24 14:20 Dose: 50 mg Tramadol HCl (Tramadol 50 Mg Tab) 100 mg PO Q6HR PRN PRN Reason: Pain Scale 6 to 10 Last Admin: 05/15/24 15:02 Dose: 100 mg On examination: VITAL SIGNS: [97.9, 75, 18, 133 x 60, 95% room air] GENERAL APPEARANCE: BMI 32.6. Sitting up in a chair awake not in distress HEENT: Normal external appearance of nose and ear. Oral cavity normal EYES: Pupils equal. Conjunctiva normal. NECK: JVD not raised. Mass not palpable. RESPIRATORY: Respiratory effort normal. Lungs clear to auscultation. CARDIOVASCULAR: First and second sounds normal. No edema. ABDOMEN: Soft. Liver and spleen not palpable. No tenderness. No mass palpable. PSYCHIATRY: Alert and oriented x3. Mood and affect normal. Musculoskeletal: Evidence of OA. Limited range of motion left hip INVESTIGATIONS, reviewed in the clinical context: May 13: White count 8.7 hemoglobin 12.8 platelets 323 sodium 130 potassium 4.5 BUN [address] left lower extremity without contrast hip: Nondisplaced periprosthetic fracture of the subtrochanteric region Assessment and plan: Left hip pain--nondisplaced periprosthetic fracture of trochanteric region., From mechanical fall Recent left knee arthroplasty: Left leg nonweightbearing with toe-touch. For inpatient rehab. History of DVT: Patient has history of remote DVT in the past in the 1970s Not on anticoagulation anymore Continue DVT prophylaxis -CAD with history of PCI: Aspirin. Statin. Coreg -Essential hypertension: Coreg. Losartan -Hyperlipidemia: Coreg, losartan. Hypothyroidism: Synthroid -Hyponatremia: Hold hydrochlorothiazide Monitor sodium. Fluid restriction 1500 cc a day -Obesity BMI 32.6 Weight loss measures DVT prophylaxis Subcutaneous heparin -Disposition pending inpatient rehab Fluid restriction 1500 cc a day. Repeat labs tomorrow . Cussed with patient Past Medical History Past Medical History: Coronary Artery Disease (CAD), Deep Vein Thrombosis (DVT), Fibromyalgia, GERD/Reflux, Hyperlipidemia, Hypertension, Osteoarthritis (OA), Sleep Apnea/CPAP/BIPAP, Thyroid Disorder Additional Past Medical History / Comment(s): SOB with any exertion, peptic ulcers, bilateral leg dvts, overactive bladder, VIKKI with cpap. History of Any Multi-Drug Resistant Organisms: None Reported Past Surgical History: Breast Surgery, Cholecystectomy, Heart Catheterization With Stent, Hysterectomy, Joint Replacement, Orthopedic Surgery, Tonsillectomy, Tubal Ligation Additional Past Surgical History / Comment(s): sx:joint replacements: left hip, gurinder. shoulder, right knee. multiple foot/toe surgeries, finger surgery right index, bilateral thumb surg. carpal tunnel repair, breast cyst R aspirated, L breast benign nodule, colonoscopy,. bilateral cataracts removed. sinus surg. Past Anesthesia/Blood Transfusion Reactions: No Reported Reaction Additional Past Anesthesia/Blood Transfusion Reaction / Comm: no blood transfusions Date of Last Stent Placement:: 05/2021 Past Psychological History: Anxiety Smoking Status: Former smoker Past Alcohol Use History: Rare Past Drug Use History: None Reported
[2024-05-15] MEDS: FESOTERODINE PO SCH (20:10)
[2024-05-16 02:34] VITALS: PULSE 73
[2024-05-16 04:22] LABS: Basophils % (A) 1 %; Eosinophils # (A) 0.4 k/uL (0-0.7); Eosinophils % (A) 7 %; Lymphocytes # (A) 1.5 k/uL (1.0-4.8); Lymphocytes % (A) 23 %; MCHC 32.5 g/dL (31.0-37.0); Mean Platelet Volume 6.7; Monocytes # (A) 0.5 k/uL (0-1.0); Monocytes % (A) 9 %; Neutrophils # (A) 3.8 k/uL (1.3-7.7); Neutrophils % (A) 59 %; Platelet Count 240 k/uL (150-450); WBC 6.4 k/uL (3.8-10.6)
[2024-05-16 04:40] LABS: African American GFR (CKD) >90 (>60 ml/min/1.73 sqM); Anion Gap 9 mmol/L; Blood Urea Nitrogen 22 mg/dL (7-17); Calcium 8.7 mg/dL (8.4-10.2); Carbon Dioxide 31 mmol/L (22-30); Chloride 91 mmol/L (98-107); Glucose 93 mg/dL (74-99); Non-African American GFR(CKD) >90 (>60 ml/min/1.73 sqM); Potassium 4.4 mmol/L (3.5-5.1); Sodium 131 mmol/L (137-145)
[2024-05-16 07:51] VITALS: BP 137/74; RESP 16; TEMP 98
--- NOTE | 2024-05-16 11:47 | P.DS ---
Providers Date of admission: 05/15/24 11:17 Expected date of discharge: 05/16/24 Attending physician: Toni Escalera MD Consults: 05/14/24 00:44 Consult Physician Routine Consulting Provider: Isai Hightower Consult Reason/Comments: medical management Do you want consulting provider notified?: Yes, Notify in am Primary care physician: Masood Arizmendi - Discharge Diagnosis(es) (1) Greater trochanter fracture Current Visit: Yes Status: Acute (2) Presence of left artificial hip joint Current Visit: Yes Status: Acute (3) Fall Current Visit: Yes Status: Acute Hospital Course: Dary is a 74-year-old female with a past medical history including CAD, DVT, fibromyalgia, hypertension, hyperlipidemia, and sleep apnea, who presented to the emergency department at [facility] for evaluation of left hip pain following a fall. She states that she tripped over her slipper at home on 05/14/2024 and she fell onto her left hip. She does report hitting her head although she reports it "it was not hard." She denies loss of consciousness, dizziness, or headache. Patient only reporting pain in her left hip. She states her left hip replacement was done in [address] Phillips at [facility]. She is post op 6 weeks from a left total knee arthroplasty by Dr. Coleman at [facility]. She was using a walker but recently transitioned to a cane. The patient states her knee is feeling ok after the fall. She was evaluated by PT and decided that she should go to rehab. On the day of dischargeshe is alert and oriented 3. Exam of the left lower extremity reveals severe guarding to the left hip. There is pain to palpation to the lateral hip. There is pain on log rolling of the left leg. There is a well healed incision to the left hip and left anterior knee. Calf is soft and nontender. She is able to wiggle his toes. Circulatory status is intact. The patient is orthopedically stable for discharge to skilled rehab today. Pertinent Studies: Laboratory Tests 05/16/24 05/16/24 02:50 02:50 WBC 6.4 RBC 4.30 Hgb 12.0 Hct 37.0 Sodium 131 L Chloride 91 L Carbon Dioxide 31 H BUN 22 H Patient Condition at Discharge: Stable Plan - Discharge Summary New Discharge Prescriptions: New Sennosides-Docusate Sodium [Senokot-S] 2 tab PO DAILY #30 tablet HYDROcodone/IBUPROFEN 7.5-200 [Vicoprofen 7.5-200 mg] 1 tab PO Q6HR PRN #30 tab PRN Reason: Pain No Action ALPRAZolam [Xanax] 0.5 mg PO BID PRN PRN Reason: Anxiety Fesoterodine Fumarate [Toviaz] 8 mg PO HS DULoxetine HCL [Cymbalta] 60 mg PO DAILY Meloxicam [Mobic] 15 mg PO DAILY Losartan [Cozaar] 50 mg PO DAILY HYDROcodone/IBUPROFEN 7.5-200 [Vicoprofen 7.5-200 mg] 1 tab PO Q6H PRN PRN Reason: Pain Cimetidine [Tagamet] 800 mg PO BID carvediloL 12.5 mg PO BID Potassium Chloride [Potassium Chloride ER (K-Dur GEQ)] 20 meq PO BID Atorvastatin [Lipitor] 40 mg PO HS Levothyroxine Sodium [Synthroid] 88 mcg PO DAILY rOPINIRole HCL [Requip] 2 mg PO HS rOPINIRole HCL [Requip] 1 mg PO DAILY@1400 Buprenorphine [Butrans 10 MCG/HOUR] 1 patch TRANSDERM BOUCHER Dicyclomine [Bentyl] 10 mg PO TID hydroCHLOROthiazide [Hydrodiuril] 25 mg PO DAILY Linaclotide [Linzess] 72 mcg PO DAILY Discharge Medication List ALPRAZolam [Xanax] 0.5 mg PO BID PRN 05/30/15 [History] DULoxetine HCL [Cymbalta] 60 mg PO DAILY 05/30/15 [History] Fesoterodine Fumarate [Toviaz] 8 mg PO HS 05/30/15 [History] Cimetidine [Tagamet] 800 mg PO BID 02/22/20 [History] HYDROcodone/IBUPROFEN 7.5-200 [Vicoprofen 7.5-200 mg] 1 tab PO Q6H PRN 02/22/20 [History] Losartan [Cozaar] 50 mg PO DAILY 02/22/20 [History] Meloxicam [Mobic] 15 mg PO DAILY 02/22/20 [History] Atorvastatin [Lipitor] 40 mg PO HS 10/05/22 [History] Potassium Chloride [Potassium Chloride ER (K-Dur GEQ)] 20 meq PO BID 10/05/22 [History] carvediloL 12.5 mg PO BID 10/05/22 [History] Buprenorphine [Butrans 10 MCG/HOUR] 1 patch TRANSDERM BOUCHER 05/14/24 [History] Dicyclomine [Bentyl] 10 mg PO TID 05/14/24 [History] Levothyroxine Sodium [Synthroid] 88 mcg PO DAILY 05/14/24 [History] Linaclotide [Linzess] 72 mcg PO DAILY 05/14/24 [History] hydroCHLOROthiazide [Hydrodiuril] 25 mg PO DAILY 05/14/24 [History] rOPINIRole HCL [Requip] 1 mg PO DAILY@1400 05/14/24 [History] rOPINIRole HCL [Requip] 2 mg PO HS 05/14/24 [History] HYDROcodone/IBUPROFEN 7.5-200 [Vicoprofen 7.5-200 mg] 1 tab PO Q6HR PRN #30 tab 05/16/24 [Rx] Sennosides-Docusate Sodium [Senokot-S] 2 tab PO DAILY #30 tablet 05/16/24 [Rx] Follow up Appointment(s)/Referral(s): Masood Arizmendi MD [Primary Care Provider] - 1-2 days Dimitris Gordillo MD [Medical Doctor] - 2 Weeks Activity/Diet/Wound Care/Special Instructions: Weightbearing-toe touch with a walker. Follow up with Dr. Gordillo in 2 weeks. Discharge Disposition: TRANSFER TO SNF/ECF
--- NOTE | 2024-05-16 17:30 | P.PN ---
Progress Note - Text Progress Note Date: 05/16/24 History of present illness: 74-year-old female with past medical history significant for coronary artery disease, remote DVT, fibromyalgia, hypertension, hyperlipidemia, sleep apnea who presented to ER for evaluation of left hip pain following a mechanical fall. Patient stated that she tripped over her slipper, denied loss of consciousness, patient fell onto her left hip, also reported slight bump on the head. Patient continued to have left hip pain after a fall. Patient had left hip replacement in 2007 and 2008. Patient is postop 6 weeks from left total knee arthroplasty. Patient was using her walker but recently was transition to a cane. Afebrile, heart rate 80, respiratory rate 18, blood pressure 147/76, saturating 97% room air. CBC unremarkable BMP unremarkable except mildly low sodium 130. CT left hipstatus post left hip arthroplasty, nondisplaced periprosthetic fracture of the subtrochanteric region. Left knee x-ray showed large joint effusion, satisfactory appearance of total left knee prosthesis without acute fracture or dislocation. May 15: Up in a chair. Left hip pain. Some nasal congestion.-Nasal spray ordered. Patient is allowed toe-touch on the left side. Followed by PT OT. Eating well. May 16: Sitting up in the chair. Getting transferred to rehab today. Nasal congestion much improved.-Will be discontinued. Discussed with patient. On examination: VITAL SIGNS: 98, 73, 16, 137 x 74, 95% room air GENERAL APPEARANCE: BMI 32.6. Sitting up in a chair awake, comfortable HEENT: Normal external appearance of nose and ear. Oral cavity normal EYES: Pupils equal. Conjunctiva normal. NECK: JVD not raised. Mass not palpable. RESPIRATORY: Respiratory effort normal. Lungs clear to auscultation. CARDIOVASCULAR: First and second sounds normal. No edema. ABDOMEN: Soft. Liver and spleen not palpable. No tenderness. No mass palpable. PSYCHIATRY: Alert and oriented x3. Mood and affect normal. Musculoskeletal: Evidence of OA. Limited range of motion left hip INVESTIGATIONS, reviewed in the clinical context: May 08: White count 6.4 hemoglobin 12 potassium 4.4 sodium 131 creatinine 0.53 May 13: White count 8.7 hemoglobin 12.8 platelets 323 sodium 130 potassium 4.5 BUN [address] left lower extremity without contrast hip: Nondisplaced periprosthetic fracture of the subtrochanteric region Assessment and plan: Left hip pain--nondisplaced periprosthetic fracture of trochanteric region., From mechanical fall Recent left knee arthroplasty: Left leg nonweightbearing with toe-touch. For inpatient rehab. History of DVT: Patient has history of remote DVT in the past in the 1970s We discharged on subcu Lovenox till patient ambulatory -CAD with history of PCI: Aspirin. Statin. Coreg -Essential hypertension: Coreg. Losartan -Hyperlipidemia: Coreg, losartan. Hypothyroidism: Synthroid -Hyponatremia: Stop hydrochlorothiazide Monitor sodium. -Obesity BMI 32.6 Weight loss measures DVT prophylaxis Subcutaneous heparin -Disposition rehab Discussed with patient Past Medical History Past Medical History: Coronary Artery Disease (CAD), Deep Vein Thrombosis (DVT), Fibromyalgia, GERD/Reflux, Hyperlipidemia, Hypertension, Osteoarthritis (OA), Sleep Apnea/CPAP/BIPAP, Thyroid Disorder Additional Past Medical History / Comment(s): SOB with any exertion, peptic ulcers, bilateral leg dvts, overactive bladder, VIKKI with cpap. History of Any Multi-Drug Resistant Organisms: None Reported Past Surgical History: Breast Surgery, Cholecystectomy, Heart Catheterization With Stent, Hysterectomy, Joint Replacement, Orthopedic Surgery, Tonsillectomy, Tubal Ligation Additional Past Surgical History / Comment(s): sx:joint replacements: left hip, gurinder. shoulder, right knee. multiple foot/toe surgeries, finger surgery right index, bilateral thumb surg. carpal tunnel repair, breast cyst R aspirated, L breast benign nodule, colonoscopy,. bilateral cataracts removed. sinus surg. Past Anesthesia/Blood Transfusion Reactions: No Reported Reaction Additional Past Anesthesia/Blood Transfusion Reaction / Comm: no blood transfusions Date of Last Stent Placement:: 05/2021 Past Psychological History: Anxiety Smoking Status: Former smoker Past Alcohol Use History: Rare Past Drug Use History: None Reported
== END 2024-05-16 13:33 | DRG 536 ==
LOC: EC 21:19 → 4SSUR 05-14 00:52 → OBSVTOIN 05-15 11:17
PROVIDERS: ADMIT Orthopaedic Surgery; ATTEND Orthopaedic Surgery
DX: S72.092A Other fracture of head and neck of left femur, initial encounter for closed fracture (principal); M97.02XA Periprosthetic fracture around internal prosthetic left hip joint, initial encounter; E87.1 Hypo-osmolality and hyponatremia; I10 Essential (primary) hypertension; E03.9 Hypothyroidism, unspecified; E66.9 Obesity, unspecified; I25.10 Atherosclerotic heart disease of native coronary artery without angina pectoris; E78.5 Hyperlipidemia, unspecified; G47.33 Obstructive sleep apnea (adult) (pediatric); Z96.652 Presence of left artificial knee joint; W01.0XXA Fall on same level from slipping, tripping and stumbling without subsequent striking against object, initial encounter; Z68.32 Body mass index [BMI] 32.0-32.9, adult; Z87.11 Personal history of peptic ulcer disease; Z86.718 Personal history of other venous thrombosis and embolism; Z79.899 Other long term (current) drug therapy; Z79.1 Long term (current) use of non-steroidal anti-inflammatories (NSAID); Z79.890 Hormone replacement therapy; Z87.891 Personal history of nicotine dependence; Z79.82 Long term (current) use of aspirin; Z95.5 Presence of coronary angioplasty implant and graft; Z82.49 Family history of ischemic heart disease and other diseases of the circulatory system
CPT/HCPCS: 73502; 80048; 80053; 85025; 93005; 96374; 96375; 96376; 99285

== ENCOUNTER → 2024-10-19 | Outpatient (CLI) | payer MEDICARE | END | disposition home or self-care (01) | LOC: LABWHC1 15:09 | PROVIDERS: ATTEND Urology | DX: R39.0 Extravasation of urine (principal) | CPT/HCPCS: 87086 ==

== ENCOUNTER → 2024-11-17 | Outpatient (CLI) | payer MEDICARE ==
--- NOTE | 2024-11-17 17:42 | BD ---
EXAMINATION TYPE: Axial Bone Density DATE OF EXAM: 11/17/2024 CLINICAL HISTORY: 74 years old Female. ICD-10 CODE: M81.0 AGE RELATED OSTEO , Additional History: Height: 63.25" Weight: 204lbs FRAX RISK QUESTIONS: Alcohol (3 or more units per day): No Family History (Parent hip fracture): No Glucocorticoids (More than 3mos): No (Ex: prednisone, prednisolone, methylprednisolone, dexamethasone, and hydrocortisone). History of Fracture in Adulthood: Yes Secondary Osteoporosis: 1. Type 1 Diabetes: No 2. Hyperthyroidism: No 3. Menopause before 45: Yes 4. Malnutrition: No 5. Chronic liver disease: No Rheumatoid Arthritis: No Current Tobacco Use: No RISK FACTORS HISTORY OF: Hip Fracture (Right/Left): Left hip, replacement and then a fx to the replaced hip When: 2009 Spine Fracture: No History of Wrist Fracture: No Surgery to Spine/Hip(right/left)/Wrist (right/left): No MEDICATIONS: Thyroid Medications: Yes Which medication: Levothyroxine How Long: Several years Osteoporosis Medications: No EXAM MEASUREMENTS: Bone mineral densitometry was performed using the sfilatino System. Bone mineral density as measured about the Lumbar spine is: ----- L1-L4(G/cm2): 1.372 T Score Values are as follows: ----- L1: -1.2 ----- L2: 2.8 ----- L3: 3.8 ----- L4: 1.5 ----- L1-L4: 1.6 Z Score Values are as follows: ----- L1: -0.4 ----- L2: 3.7 ----- L3: 4.7 ----- L4: 2.3 ----- L1-L4: 2.4 Baseline @MPH Bone mineral density about the R hip (g/cm2): 0.855 T Score values are as follows: -----R Neck: -2.2 -----R Total: -1.2 Z Score values are as follows: -----R Neck: -0.8 -----R Total: -0.1 Baseline @MPH FRAX%s: The graph provided illustrates a 20.2% chance for a major osteoporotic fx and a 5.2% chance f or the hips probability for fx in 10 years time. IMPRESSION: Osteopenia (T Score between -2.5 and -1). There is slightly increased risk of fracture and the patient may be considered for treatment. Re-Screen 2-5 years. NOTE: T-SCORE=SD OF THE YOUNG ADULT MEAN. [facility], , 11/17/2024 5:39 PM
== END | disposition home or self-care (01) ==
LOC: RADBDWWP 12:30
PROVIDERS: ATTEND Pediatrics
DX: M81.0 Age-related osteoporosis without current pathological fracture (principal); M85.89 Other specified disorders of bone density and structure, multiple sites; Z78.0 Asymptomatic menopausal state
CPT/HCPCS: 77080